=== PATIENT | male | born 1965 | race Caucasian/White ===

== ENCOUNTER 2024-09-23 15:35 | Emergency (ER) | payer BC, SELFPAY ==
[2024-09-23 15:45] VITALS: BP 136/83; PULSE 93; RESP 16; TEMP 36.7; O2SAT 95; BMI 26.3
--- NOTE | 2024-09-23 15:46 | ED_ITS ---
<Statement entered by Sherita Ochoa DO - 09/23/24 23:55> I was consulted by the BLAINE, and we discussed the complexity of the problems being addressed. I approved the treatment and management plan for this patient's care in the emergency department, thus performing a substantive portion of the medical decision making. Patient has range of motion of his elbow not concern for septic arthritis on my assessment. It looks like he has bursitis, but inflammatory markers and white count are not significant elevated. He is also afebrile, so I feel it is likely not septic bursitis. I feel he is appropriate for discharge with close follow-up with orthopedics Sherita Ochoa DO Discharge Plan Disposition Patient Disposition: Home, Self-Care Condition: Good Prescriptions Prescriptions: No Action No Known Home Medications Referrals Follow up/Referrals: Christiano Vargas DO [Staff Physician] - See instructions Jazmine Quintanilla DO [Primary Care Provider] - See instructions Activity Restrictions/Add. Instructions Additional Instructions/Restrictions: I have ordered you a sling for comfort. I recommend taking Tylenol alternating every 4 hours with Motrin while awake to help reduce pain and fever. I have referred you to orthopedics for ongoing evaluation and management. Please call on Thursday to make your appointment. If you have any continued new or worsening signs or symptoms including increasing pain redness inability to flex and extend your elbow return to the emergency department. Clinical Impressions Clinical Impression: Olecranon bursitis of right elbow Instructions Patient Instructions: DI for Skin Abscess Print Language Print Language: Croatian Discharge ED Provider: Sherita Ochoa General Adult HPI General Chief complaint: Skin/Abscess/Foreign Body Stated complaint: ? spider bite right elbow,sent from [facility] Time Seen by Provider: 09/23/24 15:46 History of Present Illness HPI narrative: Patient presents for evaluation of right elbow pain. Patient states he woke up with redness at his right olecranon this morning he denies any known trauma. He reports is gotten more painful and swollen throughout the day but denies fever chills hemoptysis hematochezia melena nausea vomiting diarrhea. He has tried Tylenol without relief. Related Data Home Medications ?Medication ?Instructions ?Recorded ?Confirmed No Known Home Medications 09/23/24 09/23/24 Allergies Allergy/AdvReac Type Severity Reaction Status Date / Time No Known Allergies Allergy Verified 09/23/24 14:43 PFSH PFSH Disclaimer: The information contained in this section may have been updated after the patient was seen, as this information can be updated by other users. Medical History (Updated 09/23/24 @ 16:56 by VINITA Cornelius) Swelling of elbow joint Social History (Updated 09/23/24 @ 18:02 by Lydia Olmstead APRN) Smoking Status: Never smoker alcohol intake: never current occupational status: employed Travel in the last 8 weeks: None Have you lived/traveled outside US in past 30 days?: No Contact w/someone who lives/traveled outside US past 30 days?: No Exposure to someone with infectious disease in past 14 days?: No Do you have a fever (greater than 100.4 F or 38 C)?: No Have you tested positive for COVID-19: No Exposed to someone with COVID-19 in past 14 days?: No Do you have a sore throat?: No Do you have a cough?: No Do you have any weakness?: No Do you have any diarrhea?: No Are you experiencing any unusual bleeding?: No Do you have any muscle aches/pain?: No Do you have any abdominal pain?: No Are you experiencing loss of taste or smell?: No ROS Obtained: Yes Systems reviewed as appropriate & no additional complaints except as documented Physical Exam General General appearance: alert and in no apparent distress Respiratory Respiratory exam: Present normal lung sounds bilaterally Cardiovascular Cardiovascular exam: Present regular rate Neurological Exam Neurological exam: Present alert and oriented X3 Medical Decision Making Medical Records Medical records reviewed: Yes I reviewed the patient's medical records. Screening: Per USPSTF and CDC recommendations, given the prevalence of disease in our region, it is our hospital?s policy to screen for HIV and viral Hepatitis for all patients aged 18 and over and those with ongoing risk factors. Oscar Inquiry Pt receiving controlled substance: No Vital Signs: 09/23/24 15:45 09/23/24 17:49 Temperature 98.0 F 98.0 F Temperature Source Oral Oral Pulse Rate 93 H Pulse Rate [Radial] 93 H Respiratory Rate 16 16 Blood Pressure 136/83 Blood Pressure [Right Arm] 136/83 Blood Pressure Mean [Right Arm] 100 Blood Pressure Source Automatic Cuff Blood Pressure Source [Right Arm] Automatic Cuff Blood Pressure Position Sitting Blood Pressure Position [Right Arm] Sitting 02 Sat by Pulse Oximetry 95 Oxygen Delivery Method Room Air Room Air Lab Data Lab results reviewed: Yes I reviewed the patient's lab results. Lab Results 09/23/24 16:25: WBC 9.3, RBC 5.77, Hgb 17.1, Hct 49.5, MCV 85.8, MCH 29.6, MCHC 34.5, RDW 13.3, Plt Count 208, MPV 9.8, Neut % (Auto) 81.7 H, Lymph % (Auto) 8.7 L, Bradford % (Auto) 6.8, Eos % (Auto) 2.2, Baso % (Auto) 0.4, Neut # (Auto) 7.6, Lymph # (Auto) 0.8, Bradford # (Auto) 0.6, Eos # (Auto) 0.2, Baso # (Auto) 0.0, ESR 1, Sodium 138, Potassium 4.3, Chloride 101, Carbon Dioxide 24, Anion Gap 17.3 H, BUN 17, Creatinine 0.90, Estimated Creat Clear 95, Estimated GFR 86, Est GFR ( Amer) 105, Glucose 161 H, Lactate 1.1, Calcium 9.8, Total Bilirubin 0.9, AST 32, ALT 37, Alkaline Phosphatase 82, C-Reactive Protein 4.7 H, Total Protein 8.4 H, Albumin 4.9, Globulin 3.5 H, Albumin/Globulin Ratio 1.4, Procalcitonin 0.043, HCV Ab LOBO w/Rflx PCR Qn Negative, HIV Ag/Ab Combo Qual Negative 09/23/24 16:25 09/23/24 16:25 Orders (Tests/Meds): ED MEDICATIONS Discontinued Medications Generic Name Dose Route Start Last Admin Trade Name Freq PRN Reason Stop Dose Admin Acetaminophen 1,000 mg 09/23/24 16:00 09/23/24 16:30 Acetaminophen 500mg Tab PO 09/23/24 16:01 1,000 mg ONCE ONE Administration Ketorolac Tromethamine 15 mg 09/23/24 16:00 09/23/24 16:30 Ketorolac 30mg/Ml Vial IV 09/23/24 16:01 15 mg ONCE ONE Administration Oxycodone HCl 5 mg 09/23/24 16:00 Oxycodone 5mg Immediate Release Tablet PO 09/23/24 16:01 ONCE ONE ORDERS Category Date Time Status Elbow XR right minimum 3 views [XR elbow RT min 3V] Exams 09/23/24 16:00 Completed Stat POCUS Point of Care (ER Only) Stat Exams 09/23/24 16:09 Taken CBC w/Auto Diff [Complete Blood Count Auto Diff] Stat Lab 09/23/24 16:25 Completed CMP [Comprehensive Metabolic Panel] Stat Lab 09/23/24 16:25 Completed CRP [C-Reactive Protein] Stat Lab 09/23/24 16:25 Completed ESR [Erythrocyte Sedimentation Rate] Stat Lab 09/23/24 16:25 Completed HIV Combo Stat Lab 09/23/24 16:25 Completed Hepatitis C Ab Qual. W/ RFX Stat Lab 09/23/24 16:25 Completed Lactic Acid Stat Lab 09/23/24 16:25 Completed Procalcitonin Stat Lab 09/23/24 16:25 Completed Medical Decision Narrative: In summary patient is a 59-year-old male who presents to the emergency department for evaluation of right elbow pain and swelling. Patient is hemodynamically stable upon arrival, afebrile. Physical exam is remarkable for olecranon bursa erythema but no induration no fluctuance patient has flexion extension at the elbow even though it is painful it is neurovascular intact distally.. Differential diagnosis includes osteophyte fracture versus olecranon bursitis versus cellulitis etc. Initial workup will be conducted with hematologic labs plain film x-ray of the elbow. Initial interventions include Toradol Tylenol and oxycodone. Initial workup reviewed by me shows his hematologic labs significant for normal white count normal H&H with no neutrophilic shift, his sed rate is 1. His procalcitonin is 0.043 C-reactive protein is 4.7 and my informal interpretation of his plain film x-ray shows no acute bony abnormality prior to radiology read.. Upon repeat evaluation had significant improvement after initial intervention. Given this we have essentially ruled out septic bursitis and will give the patient a sling for comfort referred to orthopedics and recommendation continue taking Tylenol alternating with Motrin for pain and symptomatic relief. Patient verbalized understanding and agreement. Critical Care Critical Care Time Critical Care Time: No
--- NOTE | 2024-09-23 16:00 | XR_ITS ---
FINAL REPORT CLINICAL HISTORY: Olecranon pain and swelling COMPARISON: None FINDINGS: RIGHT ELBOW 3 views of the right elbow were obtained. There is no acute fracture or dislocation. The joint spaces are well-preserved. There is no joint effusion. There is a 7 mm well-corticated ossific density posterior to the olecranon which may be related to some element of old trauma. There is overlying soft tissue edema. IMPRESSION: Soft tissue edema without acute abnormality. Reviewed, Interpreted and Dictated by Christos Fernandez MD Transcribed by Eufemia Valdez Authenticated and [facility]
[2024-09-23] MEDS: KETOROLAC 30MG/ML VIAL 15 MG IV (16:30)
[2024-09-23] MEDS: ACETAMINOPHEN 500MG TAB 1000 MG PO (16:30)
[2024-09-23 16:34] LABS: Hematocrit 49.5 % (42.0-52.0); Hemoglobin 17.1 g/dL (14.1-18.0); Lymphocytes % 8.7 % (10-50); Mean Corpuscular HGB Conc 34.5 g/dL (31.8-35.4); Mean Corpuscular Hemoglobin 29.6 pg (27.0-31.2); Mean Corpuscular Volume 85.8 fl (80-94); Mean Platelet Volume 9.8 fl (7.4-10.4); Neutrophils % 81.7 % (37.0-80.0); Platelet Count 208 K/mm3 (142-424); Red Blood Count 5.77 M/mm3 (4.60-6.20); Red Cell Distribution Width 13.3 % (11.5-17.5); Red Cell Distribution Width-SD 41.2 fL; White Blood Count 9.3 K/mm3 (4.8-10.8)
[2024-09-23 16:35] LABS: Basophils % 0.4 % (0.1-2.0); Eosinophils # 0.2 Kmm3 (0.0-0.4); Eosinophils % 2.2 % (0.1-12.0); Lymphocytes # 0.8 K/mm3 (0.7-4.5); Monocytes # 0.6 K/mm3 (0.1-1.0); Monocytes % 6.8 % (1.7-9.3); Neutrophils # 7.6 K/mm3 (1.8-7.8); Nucleated Red Blood Cells # 0 10^3/uL; Nucleated Red Blood Cells % 0 %
[2024-09-23 16:43] LABS: Alanine Aminotransferase 37 U/L (12-78); Albumin Level 4.9 g/dl (3.5-5.0); Albumin/Globulin Ratio 1.4 (1.1-1.8); Alkaline Phosphatase 82 U/L (38-126); Anion Gap 17.3 mEq/L (5-15); Aspartate Amino Transferase 32 U/L (17-59); Bilirubin,Total 0.9 mg/dl (0.2-1.3); Blood Urea Nitrogen 17 mg/dl (9-20); Calcium 9.8 mg/dl (8.4-10.2); Carbon Dioxide 24 mmol/L (22.0-30.0); Chloride 101 mmol/L (98-107); Creatinine Clearance Estimated 95 mL/min (50-200); Estimated Glomerular Filt Rate 86 ml/min (>60); GFR (African American) 105 ML/MIN (>60); Globulin 3.5 g/dL (1.3-3.2); Glucose 161 mg/dl (74-100); Potassium 4.3 mmoL/L (3.5-5.1); Sodium 138 mmol/L (136-145); Total Protein,Serum 8.4 g/dl (6.3-8.2)
[2024-09-23 16:44] LABS: Lactic Acid 1.1 mmol/L (0.7-2.1)
[2024-09-23 16:48] LABS: C-Reactive Protein 4.7 mg/L (0-4)
[2024-09-23 17:02] LABS: Procalcitonin 0.043 ng/mL (0.0-2.0)
[2024-09-23 17:06] LABS: Erythrocyte Sedimentation Rate 1 mm/hr (0-20)
[2024-09-23 17:49] VITALS: BP 136/83; PULSE 93; RESP 16; TEMP 36.7; O2SAT 95
[2024-09-23 18:03] LABS: HIV Combo NEGATIVE (Negative)
[2024-09-23 18:10] LABS: Hepatitis C Ab Qual. W/ RFX NEGATIVE (Negative)
== END 2024-09-23 17:51 | disposition home or self-care (01) ==
PROVIDERS: Physician Assistant; Emergency Provider Emergency Medicine; PCP Family Medicine
DX: M70.21 Olecranon bursitis, right elbow (principal); M25.521 Pain in right elbow; Z11.59 Encounter for screening for other viral diseases; Z11.4 Encounter for screening for human immunodeficiency virus [HIV]
CPT/HCPCS: 73080; 80053; 83605; 84145; 85025; 85651; 86140; 86803; 87389; 96374; 99284; J1885

== ENCOUNTER 2025-03-02 10:25 | Emergency (ER) | payer BC, SELFPAY ==
--- OUTSIDE RECORDS SUMMARY | 2025-02-28 23:00 | XMS_ITS | Encounter Summary ---
Author Organization [facility] Address [address] [place], [place] [phone] Phone [email or web address] Care Team Providers Care Marine Biologist Name Role Phone Jazmine Quintanilla Primary Care Provider [phone] Reason for Visit * Reason Comments Care Coordination Encounter Details Date Type Department Care Team (Latest Contact Info) Description 02/28/2025 11:00 PM EDT Clinical Support [facility] [place] [address] [facility] [address] [place] [address] Tete Mooney PA [address] [place] [address] Lightheaded (Primary Dx) Social History [...] on file 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 Oral hydration at [facility]. EDWIGE declined ALS. Stable at discharge and transported to the ER by his . RTC with release to RTW note. documented in this encounter Progress Notes * VINITA Valrea - 02/28/2025 11:00 PM EDT Subjective Ana Liu Jr. is a 59 y.o. male. 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 Onset: ~10 minutes prior to arrival Symptoms: lh/d, fuzzy headed , syncopal episode Transported TM back to [facility] 1999 via Med 1 without stretcher. [...] , but agreed to further eval at [facility]. GL gave TM water. TM feels [...] cranial nerve deficit. Gait: Gait normal. Comments: Screening Specialist is good/= Psychiatric: Mood and Affect: [...] documented in this encounter Plan of Treatment Upcoming Encounters Date Type Department Care Team (Late st Contact Info) Description 03/20/2025 8:30 PM EDT Occ Office Visit [facility] [place] [address] [facility] [address] [place] [address] Tete Mooney PA [address] [place] [address] Scheduled Orders Name Type Priority Associated Diagnoses Orde r Schedule ECG 12 lead ECG Routine Lightheaded Ordered: 02/28/2025 documented as of this encounter Procedures Procedure Name Priority Date/Time Associated Diagnosis Comments POCT GLUCOSE Routine 02/28/2025 11:22 PM EDT Lightheaded documented in this encounter Results * (ABNORMAL) POCT glucose (02/28/2025 11:22 PM EDT) [facility] Signature Glucose, POC 325(A) 65 - 99 mg/dL Glucose (Glucometer), POC IQC Yes, verified internal control performed correctly. Lot Number ER bed 1 Expiration Date ER bed 1 Blood (Blood, Capillary) 02/28/2025 11:22 PM EDT Tete TALAMANTES POINT OF CARE TEST ORDERABLE S Final Result documented in this encounter Visit Diagnoses Diagnosis Lightheaded- Primary Dizziness and giddiness documented in this encounter Care Teams Marine Biologist Relationship Specialty Start Date End Date Jazmine Quintanilla [address] [place] [phone] PCP - General 10/24/24 documented as of this encounter
[2025-03-02] VITALS (15 sets, daily range): BP systolic 126–157; BP diastolic 81–106; PULSE 69–99; RESP 14–18; TEMP 36.6–36.7; O2SAT 95–99; BMI 27.3
--- NOTE | 2025-03-02 10:34 | ECG_ITS ---
APPROVED REPORT Exam: Resting ECG HR:91 bpm ECG Measurements Heart Rate 91 AXES ND 109 P 61 QRSd 85 QRS 65 QT 331 T 22 QTc 379 Conclusion SINUS RHYTHM WITH SHORT ND INTERVAL NONSPECIFIC T-WAVE ABNORMALITY BORDERLINE ECG UNCONFIRMED REPORT Electronically signed by : GERMAN SHULTZ, 03/03/2025 03:58:56
--- NOTE | 2025-03-02 10:34 | PC.NURSE ---
FSBS 171
--- OUTSIDE RECORDS SUMMARY | 2025-03-02 10:34 | XMS_ITS | Encounter Summary ---
Author Organization [facility] Address [address] [place], [place] [phone] Phone [email or web address] Care Team Providers Care Copy Machine Operator Name Role Phone Jazmine Quintanilla Primary Care Provider [phone] Encounter Details Date Type Department Care Team (Late Contact Info) Description 03/01/[address] [place] [address] Vita Lopez RN [address] [place] [address] Social History Tobacco Use Types Packs/Day Years Used Date Smoking Tobacco: Never Smokeless Tobacco: Never Depression Answer Date Recorded PHQ Total Score 0 01/16/2025 Stress Answer Date Recorded Stress in your Life Not on file 04/13/2024 Dealing with Stress 3 04/13/2024 Sex and Gender Information Value Date Recorded Sex Assigned at Not on file 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 No answer. Left VM. documented in this encounter Plan of Treatment Upcoming Encounters Date Type Department Care Team (Late Contact Info) Description 03/20/2025 8:30 PM EDT Occ Office Visit [facility] [address] [facility] [address] [place] [address] Tete Mooney PA [address] [place] [address] documented as of this encounter Visit Diagnoses Not on filedocumented in this encounter Care Teams Copy Machine Operator Relationship Specialty Start Date End Date Jazmine Quintanilla [address] [place] [id number] PCP - General 10/24/24 documented as of this encounter
--- OUTSIDE RECORDS SUMMARY | 2025-03-02 10:34 | XMS_ITS | Clinical Summary ---
Author Organization [facility] Address [address] [place] [address] Phone [email or web address] Care Team Providers Care Azure Principal Solution Specialist Name Role Phone Jazmine Quintanilla Primary Care Provider [phone] Allergies No known active allergies Medications lisinopril (ZESTRIL) 10 MG tabletIndications :Primary hypertension Take 1 tablet (10 mg total) by mouth 1 (one) time each day. 30 tablet 02/04/2023 Active Jardiance 25 MG tablet Take 1 tablet every day by oral route for 90 days. 09/21/2024 Active ibuprofen (MOTRIN) 200 MG tablet Take 200 mg by mouth every 6 (six) hours if needed for mild pain. Active meloxicam (MOBIC) 15 MG tablet TAKE 1 TABLET BY MOUTH ONCE DAILY FOR 10 DAYS 09/26/2024 Active Jardiance 10 MG tablet Take 1 tablet by mouth 1 (one) time each day. 09/19/2024 Active Hospital, Clinic, or Other Facility Administered Medication Ordered Dose Route Frequency Start Date End Date Status sulfamethoxazole-trimethoprim (BACTRIM DS) 800-160 MG per tablet 1 tabletIndications:Cellulitis of right elbow 1 tablet PO Once 01/17/2025 Active Active Problems Problem Noted Date Diagnosed Date Essential hypertension 12/11/2019 Type 2 diabetes mellitus 12/11/2019 Encounters Date Type Department Care Team Description 03/01/2025 Telephone [facility] [address] [place] [address] Vita Lopez RN 02/28/2025 11:00 PM EDT Clinical Support [facility] [address] [facility] [address] [place] [address] Tete Mooney PA Lightheaded (Primary Dx) 02/15/2025 Telephone [facility] [address] [place] [address] Mariana Hawthorne RN 12/05/[address] [place] [address] Bridget Valenzuela MA from Last 3 Months Social History Tobacco Use Types Packs/Day Years [...] on file 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 Gender Identity Not on file Sexual Orientation Not on file Last Filed Vital Signs Vital Sign Reading Time Taken Comments Blood Pressure 155/88 02/28/2025 10:53 PM EDT Pulse 89 02/28/2025 10:53 PM EDT Temperature 36.8 C (98.3 F) 02/15/2025 4:05 PM EDT Respiratory Rate 16 02/28/2025 11:15 PM EDT Oxygen Saturation 96% 02/28/2025 11:15 PM EDT Inhaled Oxygen Concentration - - Weight 76.9 kg (169 lb 9.6 oz) 09/26/2024 11:30 AM EDT Height 170.2 cm (5' 7 ) 09/26/2024 11:30 AM EDT Body Mass Index 26.56 09/26/2024 11:30 AM EDT Plan of Treatment Upcoming Encounters Date Type Department Care Team (Late st Contact Info) Description 03/20/2025 8:30 PM EDT Occ Office Visit [facility] [address] [facility] [address] [place] [address] Tete Mooney PA [address] [place] [address] Health Maintenance Due Date Last Done Comments CT Colonography 1965 Colonoscopy 1965 Colorectal Cancer Screening Combo 1965 DNA Cologuard 1965 Dental Cleaning/Exam 1965 FIT or FOBT Test 1965 HIV Screening 1965 Hepatitis C Screening 1965 Sigmoidoscopy 1965 Diabetic Comprehensive Foot Exam 08/24/1975 Diabetic Kidney Health Eval (eGFR & Alb/CR ratio urine) 08/24/1975 Hemoglobin A1C Testing 08/24/1975 Hep B Infection Screening - Triple Screen 08/24/1983 Hepatitis B Immunization (1 of 3 - 19+ 3-dose series) 1984 Pneumococcal Immunization (1 of 2 - PCV) 1984 Tetanus Diphtheria and Pertu ssis Immunization (1 - Tdap) 1984 Zoster Immunization (1 of 2) 08/24/2015 Annual Preventive Exam 05/16/2023 05/16/2022 Diabetic Retinal Eye Exam 09/30/2024 09/30/2022 Covid-19 Immunization (1 - 2 season) 2025 Influenza Immunization (#1) 2025 HIB Immunization Aged Out No longer e ligible based on patient's age to complete this topic HPV Immunization Aged Out No longer e ligible based on patient's age to complete this topic Hepatitis A Immunization Aged Out No longer eligible based on patient's age to complete this topic Polio Immunization Aged Out No longer eligible based on patient's age to complete this topic Procedures Procedure Name Priority Date/Time Associated Diagnosis Comments POCT GLUCOSE Routine 02/28/2025 11:22 PM EDT Lightheaded from Last 3 Months Results * (ABNORMAL) POCT glucose (02/28/2025 11:22 PM EDT) Glucose, POC 325(A) 65 - 99 mg/dL Glucose (Glucometer), POC IQC Yes, verified internal control performed correctly. Lot Number ER bed 1 Expiration Date ER bed 1 Blood (Blood, Capillary) 02/28/2025 11:22 PM EDT Tete TALAMANTES POINT OF CARE TEST ORDERABLE S Final Result from Last 3 Months Insurance [place] [address] [facility] [id number] [place] [address] Care Teams Azure Principal Solution Specialist Relationship Specialty Start Date End Date aJzmine Quintanilla [address] [place] [id number] PCP - General 10/24/24
--- OUTSIDE RECORDS SUMMARY | 2025-03-02 10:34 | XMS_ITS | Encounter Summary ---
Author Organization [facility] Address [address] [place] [address] Phone [email or web address] [email or web address] Care Team Providers Care Toll Line Repairer Name Role Phone Jazmine Quintanilla Primary Care Provider Encounter Details Date Type Department Care Team (Late st Contact Info) Description 02/15/2025 Telephone [facility] [address] [place] [address] Mariana Hawthorne, RN [address] [place] [address] Social History Tobacco Use Types Packs/Day Years Used Date Smoking Tobacco: Never Smokeless Tobacco: Never Depression Answer Date Recorded PHQ Total Score 0 01/16/2025 Stress Answer Date Recorded Stress in your Life Not on file 04/13/2024 Dealing with Stress 3 04/13/2024 Sex and Gender Information Value Date Recorded Sex Assigned at Not on file 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 He is using ibuprofen but no antibiotics for a few weeks. He has been seen by S provider and on 1:1 restricted duty. He has a follow up with Specialist office at [facility] on 02/27/25. He has called the office of [facility] and asked for earlier appt but the Specialist and kathy TALAMANTES are on vacation for a few weeks. I placed him on the scheduled this afternoon at 1:30, then r/s to 5 pm once clarified he is 2nd shift. TM is aware of [facility] appt at 5pm with Dr. Huber. Mariana Hawthorne RN documented in this encounter Plan of Treatment Upcoming Encounters Date Type Department Care Team (Late st Contact Info) Description 03/20/2025 8:30 PM EDT Occ Office Visit [facility] [address] [place] [address] Tete Mooney PA [address] [place] [address] documented as of this encounter Visit Diagnoses Not on filedocumented in this encounter Care Teams Toll Line Repairer Relationship Specialty Start Date End Date Jazmine Quintanilla [address] [place] [id number] PCP - General 10/24/24 documented as of this encounter
--- OUTSIDE RECORDS SUMMARY | 2025-03-02 10:34 | XMS_ITS | Patient Health Record ---
Author Organization [facility] Physician Jet young Billing Info Address [address] [place] [address] [place] [address] Support Name Relationship Address Phone NoeKatherine Emergency Contact [address] [place] [address] Ana Liu Guarantor Unknown Reason For Referral No Information Immunizations Vaccine Route Administration Date Status Comme nts zFLU 4V (AFLURIA QUAD), 3+yr s, NO PRES - ALL PAYORS Unknown 12/05/2019 Refused Social History Tobacco Status: Question Answer Notes Patient is a non tobacco user Plan Of Treatment Pending Test Test Name Order Date GLUCOSE FINGERSTICK, BLOOD, GLUCOSE SHUBHAM TORING (12698) 12/05/2019 URINALYSIS, DIP STICK/TABLET REAGENT; AU TOMATED, W/O MICROSCOPY ([id number]) 12/05/2019 Comprehensive Metabolic Panel (71299) 12/05/2019 BLOOD COUNT; COMPLETE CBC, A UTOMATED (HGB, HCT, RBC, WBC, & PLATELET) & AUTOMATED DIFFERENTIAL WBC (79109) CBC 12/05/2019 Insurance Providers Payer Name Payer Address Payer Phone Subscriber Number Group Number Insured Name Patient Relationship to Insured Coverage Start Date Coverage End Date [facility] CHOICE PLUS [address] [facility] [place] [place] [id number] Ana Liu Self - patient is the insured 0 0 Medical (General) History Medical History History ICD Code Borderline Diabetes Surgical History Surgery Date(Month/Year) deviated septum repair 11/24/2019
--- NOTE | 2025-03-02 11:11 | ED_ITS ---
Discharge Plan Disposition Patient Disposition: Home, Self-Care Prescriptions Prescriptions: No Action No Known Home Medications Referrals Follow up/Referrals: Jazmine Quintanilla DO [Primary Care Provider, Medical] - See instructions Queta Hernández MD [Physician, Pulmonology] - See instructions Activity Restrictions/Add. Instructions Additional Instructions/Restrictions: At this time it was felt you are safe to be discharged home. If new or worsening symptoms please do not hesitate to return the emergency department. As discussed please follow-up with cardiology tomorrow morning at 9 AM. You were also found to have a pulmonary nodule in your right upper lung. This will need follow-up and I am referring you to our market research coordinator, Dr. Hernández. I encourage you to call their office to schedule a follow-up appointment. Clinical Impressions Clinical Impression: Syncope, Incidental pulmonary nodule Instructions Patient Instructions: DI for Syncope in Adults (Fainting) Print Language Print Language: Guatemalan Discharge ED Provider: Arnulfo Bertrand General Adult HPI <Arnulfo Bertrand MD - Last Filed: 03/02/25 15:12> General Chief complaint: Syncope Stated complaint: Wants EKG & Finger Stick Time Seen by Provider: 03/02/25 10:30 Mode of Arrival: Ambulatory Source of Information: Patient Description of Symptoms (Recalled from ER Triage Doc. by RN): Patient states that he had a syncopal episode at work on 02/28/25 and was told that night when it happened he needed to go to the ER and get checked out. Patient states that he did not want to go to the ER then because it was too late and instead states he decided to come to the ER today to get his blood sugar checked and a repeat EKG. Patient denies any further syncopal episodes. History of Present Illness HPI narrative: Patient is a 59-year-old male with iqa-ryyswuq-ozaqviwyj diabetes, hypertension who presents emergency department for evaluation of syncope. 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 No significant trauma. He was instructed to go to the ER to be cleared. His sugars have been running 300-400 on his Jardiance lately. No other acute complaints at this time. Please note that above description of symptoms, in this electronic medical record under categorization of recalled from ER triage doctor by RN are reflective of an initial nursing assessment, however, is not reflective of my full history and physical exam that was personally taken and clarified. Consequentially, this preceding description of symptoms, which may include the patient's categorized chief complaint in the EMR, do not reflect my personal clinical impression, and the ultimate description of history of present illness and patient stated complaints should be deferred to this section of the note. Unless stated otherwise or congruent with this section of the note, additional signs, symptoms, or incongruence should be interpreted as inaccurate with my clinical impression. Related Data Home Medications ?Medication ?Instructions ?Recorded ?Confirmed No Known Home Medications 09/23/2409/06 Allergies Allergy/AdvReac Type Severity Reaction Status Date / Time No Known Allergies Allergy Verified 03/02/25 10:39 PFSH <Arnulfo Bertrand MD - Last Filed: 03/02/25 15:12> PFS Disclaimer: The information contained in this section may have been updated after the patient was seen, as this information can be updated by other users. Medical History (Updated 03/02/25 @ 16:14 by Juan Atkinson MD) Swelling of elbow joint Social History (Updated 09/23/24 @ 18:02 by Lydia Olmstead APRN) Smoking Status: Never smoker alcohol intake: never current occupational status: employed Travel in the last 8 weeks?: None <Arnulfo Bertrand MD - Last Filed: 03/02/25 15:12> ROS Obtained: Yes Systems reviewed as appropriate & no additional complaints except as documented Physical Exam <Arnulfo Bertrand MD - Last Filed: 03/02/25 15:12> General General appearance: alert and in no apparent distress Head Head exam: atraumatic and normocephalic Eye Eye exam: Present PERRL and EOMI ENT ENT exam: Present mucous membranes moist Neck Neck exam: Present normal inspection Chest Chest inspection: Present normal inspection and symmetric chest wall rise Respiratory Respiratory exam: Present normal lung sounds bilaterally; Absent respiratory distress Cardiovascular Cardiovascular exam: Present regular rate and normal rhythm Abdominal Exam Abdominal exam: Present soft; Absent tenderness Extremities Exam Extremities exam: Present normal inspection Neurological Exam Neurological exam: Present alert and CN II-XII intact; Absent motor sensory deficit Psychiatric Psychiatric exam: Present normal affect Skin Skin exam: Present warm and dry Medical Decision Making <Arnulfo Bertrand MD - Last Filed: 03/02/25 15:12> Medical Records Screening: Per USPSTF and CDC recommendations, given the prevalence of disease in our region, it is our hospital?s policy to screen for HIV and viral Hepatitis for all patients aged 18 and over and those with ongoing risk factors. Oscar Inquiry Pt receiving controlled substance: No Vital Signs: 03/02/25 10:34 03/02/25 11:11 03/02/25 11:30 Temperature 98 F Temperature Source Oral Pulse Rate 78 81 Pulse Rate [Left Brachial] 99 H Respiratory Rate 16 16 16 Blood Pressure 128/81 126/90 Blood Pressure [Left Arm] 139/106 H Blood Pressure Mean 84 100 Blood Pressure Mean [Left Arm] 117 Blood Pressure Source [Left Arm] Automatic Cuff Blood Pressure Position [Left Arm] Sitting 02 Sat by Pulse Oximetry 97 97 95 Oxygen Delivery Method Room Air Room Air 03/02/25 12:00 03/02/25 12:30 03/02/25 12:53 Temperature Temperature Source Pulse Rate 85 70 77 Pulse Rate [Left Brachial] Respiratory Rate 18 14 18 Blood Pressure 141/97 H 157/106 H 155/90 H Blood Pressure [Left Arm] Blood Pressure Mean 109 117 111 Blood Pressure Mean [Left Arm] Blood Pressure Source [Left Arm] Blood Pressure Position [Left Arm] 02 Sat by Pulse Oximetry 97 98 99 Oxygen Delivery Method 03/02/25 13:00 03/02/25 13:30 03/02/25 14:00 Temperature Temperature Source Pulse Rate 73 71 77 Pulse Rate [Left Brachial] Respiratory Rate 16 16 18 Blood Pressure 154/98 H 141/97 H 148/102 H Blood Pressure [Left Arm] Blood Pressure Mean 113 108 117 Blood Pressure Mean [Left Arm] Blood Pressure Source [Left Arm] Blood Pressure Position [Left Arm] 02 Sat by Pulse Oximetry 98 96 97 Oxygen Delivery Method 03/02/25 14:30 Temperature Temperature Source Pulse Rate 72 Pulse Rate [Left Brachial] Respiratory Rate 15 Blood Pressure 150/95 H Blood Pressure [Left Arm] Blood Pressure Mean Blood Pressure Mean [Left Arm] Blood Pressure Source [Left Arm] Blood Pressure Position [Left Arm] 02 Sat by Pulse Oximetry 97 Oxygen Delivery Method Lab Data Lab Results 03/02/25 11:20: WBC 6.3, RBC 5.93, Hgb 17.6, Hct 50.9, MCV 85.8, MCH 29.7, MCHC 34.6, RDW 13.2, Plt Count 219, MPV 9.6, Neut % (Auto) 71.2, Lymph % (Auto) 14.9, [place] % (Auto) 7.3, Eos % (Auto) 5.2, Baso % (Auto) 0.9, Neut # (Auto) 4.5, Lymph # (Auto) 0.9, [place] # (Auto) 0.5, Eos # (Auto) 0.3, Baso # (Auto) 0.1, D-Dimer 0.66 H, VBG pH 7.36, VBG pCO2 34.8 L, VBG pO2 56.2 H, VBG HCO3 19.2 L, VBG Total CO2 20.3 L, VBG O2 Saturation 88.6 H, VBG Base Excess -6.2 L, VBG Lactic Acid 1.9, Sodium 133 L, Potassium 4.8, Chloride 98, Carbon Dioxide 21 L, Anion Gap 18.8 H, BUN 19, Creatinine 0.90, Estimated Creat Clear 99, Estimated GFR 86, Est GFR ( Amer) 105, Glucose 159 H, Calcium 9.8, Magnesium 2.1, Total Bilirubin 1.0, AST 42, ALT 37, Alkaline Phosphatase 72, Total Protein 8.3 H, Albumin 4.6, Globulin 3.7 H, Albumin/Globulin Ratio 1.2, TSH 1.56, Free T4 1.06, Acetone Level None detected 03/02/25 12:53: Urine Color Yellow, Urine Appearance Clear, Urine pH 5.5, Ur Specific [place] 1.020, Urine Protein Negative, Urine Glucose (UA) 3+, Urine Ketones 3+, Urine Blood Negative, Urine Nitrate Negative, Urine Bilirubin Negative, Urine Urobilinogen 0.2, Ur Leukocyte Esterase Negative, Urine RBC None, Urine WBC None, Ur Squamous Epith Cells None, Urine Bacteria None 03/02/25 11:20 03/02/25 11:20 Orders (Tests/Meds): ED MEDICATIONS Discontinued Medications Generic Name Dose Route Start Last Admin Trade Name Freq PRN Reason Stop Dose Admin Lactated Ringer's 1,000 mls @ 999 mls/hr 03/02/25 11:11 03/02/25 12:32 Lactated Ringer's 1000 Ml Bag IV 03/02/25 12:11 Infused .Q1H1M ONE Infusion Iopamidol 70 ml 03/02/25 15:34 03/02/25 15:35 Iopamidol-370 (76%);100ml Bottle IV 03/02/25 15:35 70 ml ONCE ONE Administration Sodium Chloride 50 ml 03/02/25 15:34 03/02/25 15:35 0.9 % Sodium Chloride 50 Ml Vial IV 03/02/25 15:35 50 ml ONCE ONE Administration Sodium Chloride 10 ml 03/02/25 15:34 03/02/25 15:35 Sodium Chloride 0.9% 10ml Syr (Rad Only) IV 03/02/25 15:35 10 ml ONCE ONE Administration ORDERS Category Date Time Status CT angio chest PE protocol Stat Cat Scan 03/02/25 15:17 Completed CXR --portable [XR chest portable] Stat Exams 03/02/25 13:47 Completed Acetone, Serum (Rapid) Stat Lab 03/02/25 11:20 Completed CBC w/Auto Diff [Complete Blood Count Auto Diff] Stat Lab 03/02/25 11:20 Completed CMP [Comprehensive Metabolic Panel] Stat Lab 03/02/25 11:20 Completed D-Dimer Stat Lab 03/02/25 11:20 Completed Free T4 (Free Thyroxine) Stat Lab 03/02/25 11:20 Completed MG [Magnesium] Stat Lab 03/02/25 11:20 Completed TSH [Thyroid Stimulating Hormone] Stat Lab 03/02/25 11:20 Completed UA [Urinalysis and Microscopic] Stat Lab 03/02/25 12:53 Completed VBG [Venous Blood Gas] Stat RT 03/02/25 11:20 Completed ECG holter initial pfn Stat Y 03/02/25 15:11 Completed ECG Data Tracing #1: Independently interpreted by me rate is 91, rhythm is regular, axis is normal, no ST elevation in anatomical contiguous leads, QTc 379, no high degree AV block, no delta wave, no dagger Q waves in the lateral leads, no evidence of type II Brugada. Medical Decision Narrative: In summary patient is a 59-year-old male with past medical history of scrota above who presents emergency department for evaluation of syncope. Patient is hemodynamically stable nontoxic-appearing arrival, afebrile with nonfocal neurologic exam. Fingerstick upon arrival 171. Patient has taken Jardiance. Differential includes euglycemic DKA, metabolic derangement, electrolyte abnormality, cardiogenic arrhythmic syncope, among others. Initial workup will be conducted with hematologic labs. Patient has no chest pain to warrant investigation for ACS or pulmonary embolism at this time. Initial inventions include crystalloid bolus. Initial hematologic labs reviewed by me no significant leukocytosis, compensated acid-base status no transfusable anemia, no BRADLEY or critical electrolyte abnormality sugar is 159. Acetone negative. Urinalysis interpreted by me and not consistent with infection. I consulted cardiology Yovany Wyatt who evaluated the patient, we will get a D-dimer to rule stratify pulmonary embolism and will put him on a Holter monitor and if D-dimer excludes pulmonary embolism will follow-up tomorrow morning at 9 AM in clinic. <Juan Atkinson MD - Last Filed: 03/02/25 16:15> Vital Signs: 03/02/25 10:34 03/02/25 11:11 03/02/25 11:30 Temperature 98 F Temperature Source Oral Pulse Rate 78 81 Pulse Rate [Left Brachial] 99 H Respiratory Rate 16 16 16 Blood Pressure 128/81 126/90 Blood Pressure [Left Arm] 139/106 H Blood Pressure Mean 84 100 Blood Pressure Mean [Left Arm] 117 Blood Pressure Source [Left Arm] Automatic Cuff Blood Pressure Position [Left Arm] Sitting 02 Sat by Pulse Oximetry 97 97 95 Oxygen Delivery Method Room Air Room Air 03/02/25 12:00 03/02/25 12:30 03/02/25 12:53 Temperature Temperature Source Pulse Rate 85 70 77 Pulse Rate [Left Brachial] Respiratory Rate 18 14 18 Blood Pressure 141/97 H 157/106 H 155/90 H Blood Pressure [Left Arm] Blood Pressure Mean 109 117 111 Blood Pressure Mean [Left Arm] Blood Pressure Source [Left Arm] Blood Pressure Position [Left Arm] 02 Sat by Pulse Oximetry 97 98 99 Oxygen Delivery Method 03/02/25 13:00 03/02/25 13:30 03/02/25 14:00 Temperature Temperature Source Pulse Rate 73 71 77 Pulse Rate [Left Brachial] Respiratory Rate 16 16 18 Blood Pressure 154/98 H 141/97 H 148/102 H Blood Pressure [Left Arm] Blood Pressure Mean 113 108 117 Blood Pressure Mean [Left Arm] Blood Pressure Source [Left Arm] Blood Pressure Position [Left Arm] 02 Sat by Pulse Oximetry 98 96 97 Oxygen Delivery Method 03/02/25 14:30 Temperature Temperature Source Pulse Rate 72 Pulse Rate [Left Brachial] Respiratory Rate 15 Blood Pressure 150/95 H Blood Pressure [Left Arm] Blood Pressure Mean Blood Pressure Mean [Left Arm] Blood Pressure Source [Left Arm] Blood Pressure Position [Left Arm] 02 Sat by Pulse Oximetry 97 Oxygen Delivery Method Lab Data Lab Results 03/02/25 11:20: WBC 6.3, RBC 5.93, Hgb 17.6, Hct 50.9, MCV 85.8, MCH 29.7, MCHC 34.6, RDW 13.2, Plt Count 219, MPV 9.6, Neut % (Auto) 71.2, Lymph % (Auto) 14.9, [place] % (Auto) 7.3, Eos % (Auto) 5.2, Baso % (Auto) 0.9, Neut # (Auto) 4.5, Lymph # (Auto) 0.9, [place] # (Auto) 0.5, Eos # (Auto) 0.3, Baso # (Auto) 0.1, D-Dimer 0.66 H, VBG pH 7.36, VBG pCO2 34.8 L, VBG pO2 56.2 H, VBG HCO3 19.2 L, VBG Total CO2 20.3 L, VBG O2 Saturation 88.6 H, VBG Base Excess -6.2 L, VBG Lactic Acid 1.9, Sodium 133 L, Potassium 4.8, Chloride 98, Carbon Dioxide 21 L, Anion Gap 18.8 H, BUN 19, Creatinine 0.90, Estimated Creat Clear 99, Estimated GFR 86, Est GFR ( Amer) 105, Glucose 159 H, Calcium 9.8, Magnesium 2.1, Total Bilirubin 1.0, AST 42, ALT 37, Alkaline Phosphatase 72, Total Protein 8.3 H, Albumin 4.6, Globulin 3.7 H, Albumin/Globulin Ratio 1.2, TSH 1.56, Free T4 1.06, Acetone Level None detected 03/02/25 12:53: Urine Color Yellow, Urine Appearance Clear, Urine pH 5.5, Ur Specific [place] 1.020, Urine Protein Negative, Urine Glucose (UA) 3+, Urine Ketones 3+, Urine Blood Negative, Urine Nitrate Negative, Urine Bilirubin Negative, Urine Urobilinogen 0.2, Ur Leukocyte Esterase Negative, Urine RBC None, Urine WBC None, Ur Squamous Epith Cells None, Urine Bacteria None Orders (Tests/Meds): ED MEDICATIONS Discontinued Medications Generic Name Dose Route Start Last Admin Trade Name [place] PRN Reason Stop Dose Admin Lactated Ringer's 1,000 mls @ 999 mls/hr 03/02/25 11:11 03/02/25 12:32 Lactated Ringer's 1000 Ml Bag IV 03/02/25 12:11 Infused .Q1H1M ONE Infusion Iopamidol 70 ml 03/02/25 15:34 03/02/25 15:35 Iopamidol-370 (76%);100ml Bottle IV 03/02/25 15:35 70 ml ONCE ONE Administration Sodium Chloride 50 ml 03/02/25 15:34 03/02/25 15:35 0.9 % Sodium Chloride 50 Ml Vial IV 03/02/25 15:35 50 ml ONCE ONE Administration Sodium Chloride 10 ml 03/02/25 15:34 03/02/25 15:35 Sodium Chloride 0.9% 10ml Syr (Rad Only) IV 03/02/25 15:35 10 ml ONCE ONE Administration ORDERS Category Date Time Status CT angio chest PE protocol Stat Cat Scan 03/02/25 15:17 Completed CXR --portable [XR chest portable] Stat Exams 03/02/25 13:47 Completed Acetone, Serum (Rapid) Stat Lab 03/02/25 11:20 Completed CBC w/Auto Diff [Complete Blood Count Auto Diff] Stat Lab 03/02/25 11:20 Completed CMP [Comprehensive Metabolic Panel] Stat Lab 03/02/25 11:20 Completed D-Dimer Stat Lab 03/02/25 11:20 Completed Free T4 (Free Thyroxine) Stat Lab 03/02/25 11:20 Completed MG [Magnesium] Stat Lab 03/02/25 11:20 Completed TSH [Thyroid Stimulating Hormone] Stat Lab 03/02/25 11:20 Completed UA [Urinalysis and Microscopic] Stat Lab 03/02/25 12:53 Completed VBG [Venous Blood Gas] Stat RT 03/02/25 11:20 Completed ECG holter initial pfn Stat Y 03/02/25 15:11 Completed Medical Decision Narrative: In summary patient is a 59-year-old male with past medical history of scrota above who presents emergency department for evaluation of syncope. Patient is hemodynamically stable nontoxic-appearing arrival, afebrile with nonfocal neurologic exam. Fingerstick upon arrival 171. Patient has taken Jardiance. Differential includes euglycemic DKA, metabolic derangement, electrolyte abnormality, cardiogenic arrhythmic syncope, among others. Initial workup will be conducted with hematologic labs. Patient has no chest pain to warrant investigation for ACS or pulmonary embolism at this time. Initial inventions include crystalloid bolus. Initial hematologic labs reviewed by me no significant leukocytosis, compensated acid-base status no transfusable anemia, no BRADLEY or critical electrolyte abnormality sugar is 159. Acetone negative. Urinalysis interpreted by me and not consistent with infection. I consulted cardiology Yovany Wyatt who evaluated the patient, we will get a D-dimer to rule stratify pulmonary embolism and will put him on a Holter monitor and if D-dimer excludes pulmonary embolism will follow-up tomorrow morning at 9 AM in clinic. Juan Atkinson MD At the time my assumption of care, plan was to follow-up patient's D-dimer and obtain CT PE if elevated. Otherwise, if negative, discharged with Holter monitor and cardiology follow-up tomorrow. Ultimately, patient's workup showed mildly elevated D-dimer of 0.66. Given this, to rule out pulmonary embolism as the cause for his syncopal episode, will obtain CT pulmonary embolism. CT PE interpreted by me personally. No evidence of pulmonary embolism. He does have a right upper lobe pulmonary nodule but no other acute findings. See radiology report for details. Will give patient referral to Dr. Hernández for follow-up of patient's pulmonary nodule. Patient has an appointment with cardiology at 9 AM in the morning. Holter monitor has been placed. Return precautions were given. All questions were answered. He is being discharged at this time with plan to follow with cardiology in the morning as discussed and he is in agreement with this plan. Critical Care <Arnulfo Bertrand MD - Last Filed: 03/02/25 15:12> Critical Care Time Critical Care Time: No
--- NOTE | 2025-03-02 11:23 | PC.NURSE ---
RT AWARE OF VBG
[2025-03-02 11:29] LABS: Hematocrit 50.9 % (42.0-52.0); Hemoglobin 17.6 g/dL (14.1-18.0); Immature Granulocytes % 0.5 %; Mean Corpuscular HGB Conc 34.6 g/dL (31.8-35.4); Mean Corpuscular Hemoglobin 29.7 pg (27.0-31.2); Mean Corpuscular Volume 85.8 fl (80-94); Nucleated Red Blood Cells % 0 %; Platelet Count 219 K/mm3 (142-424); Red Blood Count 5.93 M/mm3 (4.60-6.20); Red Cell Distribution Width-SD 41.0 fL; White Blood Count 6.3 K/mm3 (4.8-10.8)
[2025-03-02] MEDS: LACTATED RINGERS 1000ML 1,000 ML 999 ML IV (11:31)
[2025-03-02 11:32] LABS: Lactate Venous 1.9 mmol/L (0.4-2.0); VBG HCO3 19.2 mmol/L (23-30); VBG PCO2 34.8 mmol/L (35-51); VBG PH 7.36 mmol/L (7.31-7.41); VBG PO2 56.2 mmol/L (28-40)
[2025-03-02 11:39] LABS: Albumin Level 4.6 g/dl (3.5-5.0); Chloride 98 mmol/L (98-107); Potassium 4.8 mmoL/L (3.5-5.1); Sodium 133 mmol/L (136-145)
[2025-03-02 11:42] LABS: Alanine Aminotransferase 37 U/L (12-78); Albumin/Globulin Ratio 1.2 (1.1-1.8); Alkaline Phosphatase 72 U/L (38-126); Anion Gap 18.8 mEq/L (5-15); Aspartate Amino Transferase 42 U/L (17-59); Bilirubin,Total 1.0 mg/dl (0.2-1.3); Blood Urea Nitrogen 19 mg/dl (9-20); Carbon Dioxide 21 mmol/L (22.0-30.0); Creatinine Clearance Estimated 99 mL/min (50-200); Creatinine,Serum 0.90 mg/dl (0.66-1.25); Estimated Glomerular Filt Rate 86 ml/min (>60); GFR (African American) 105 ML/MIN (>60); Globulin 3.7 g/dL (1.3-3.2); Total Protein,Serum 8.3 g/dl (6.3-8.2)
[2025-03-02 11:43] LABS: Calcium 9.8 mg/dl (8.4-10.2); Glucose 159 mg/dl (74-100); Magnesium 2.1 mg/dl (1.6-2.3)
[2025-03-02 12:07] LABS: Free T4 (Free Thyroxine) 1.06 ng/dl (0.78-2.19)
[2025-03-02 12:09] LABS: Acetone, Serum (Rapid) None Detected (None Detect)
[2025-03-02 12:13] LABS: Thyroid Stimulating Hormone 1.56 uIU/mL (0.465-4.68)
[2025-03-02 12:58] LABS: Microscopic, Urine URINE MICROSCOPIC (MICROSCOPIC)
[2025-03-02 13:00] LABS: Bilirubin,Urine Negative (Negative); Color,Urine YELLOW (Yellow); Glucose,Urine (UA) 3+ (Negative); Ketones,Urine 3+ (Negative); Leukocyte Esterase,Urine Negative (Negative); PH,Urine 5.5 (5.0-8.5); Protein,Urine Negative (Negative); Specific Gravity, Urine 1.020 (1.005-1.030); Urobilinogen,Urine 0.2 EU/dl (0.2)
--- NOTE | 2025-03-02 13:47 | XR_ITS ---
FINAL REPORT CLINICAL HISTORY: syncope FINDINGS: A portable view of the chest was obtained. Cardiac and mediastinal silhouettes are within normal limits. There is linear atelectasis or scarring in the left lung base. There is no pleural effusion or pneumothorax. IMPRESSION: Linear atelectasis or scar in the left lung base. Reviewed, Interpreted and Dictated by Dyana Osman MD Transcribed by Brianna Newman Authenticated and [facility]
--- NOTE | 2025-03-02 13:49 | PC.NURSE ---
Dr Feldman paged per Dr Bertrand.
--- NOTE | 2025-03-02 13:52 | PC.NURSE ---
PORTABLE CHEST XRAY AT BEDSIDE
--- NOTE | 2025-03-02 14:11 | PC.NURSE ---
PROVIDED PT WITH [employer]
--- NOTE | 2025-03-02 14:45 | EXP.CARD.CON ---
History of Present Illness History of Present Illness Consult date: 03/02/25 Requesting physician: Arnulfo Bertrand Chief complaint: Syncope History of present illness: Ana Liu is a 59-year-old white male with a past medical history of diabetes mellitus type 2 and hypertension who presented to emergency department with complaints of syncope. Patient reports he was in his normal state of health on Thursday at work at [employer] when he had a syncopal episode. He reports he was walking back from the restroom and passed out. He denies hitting his head or injury. Patient denies any symptoms leading up to the event such as chest pain, shortness of breath or dizziness. Patient reports his made him come to the ER. The only thing that is been abnormal for him is his sugars have been running a little high at home in the 200-300 range but today in the ER it is in the 150. He denies any recent changes to his medications. Denies any further symptoms since event. EKG upon presentation to ER shows normal sinus rhythm-negative for STEMI. Labs are as follows: WBC 6.3, hemoglobin 17.6, sodium 133, potassium 4.8, creatinine 0.9, glucose 159, TSH and free T4 normal. Preliminary chest x-ray is negative for acute cardiopulmonary process but official read is pending. Patient has had no further episodes of syncope since Thursday. [facility] Disclaimer: The information contained in this section may have been updated after the patient was seen, as this information can be updated by other users. Medical History (Updated 03/02/25 @ 14:49 by Magali Wyatt APRN) Swelling of elbow joint Social History (Updated 09/23/24 @ 18:02 by Lydia Olmstead APRN) Smoking Status: Never smoker alcohol intake: never current occupational status: employed Travel in the last 8 weeks?: None Review of Systems Review of Systems Review of systems:: pertinent systems reviewed and negative unless documented below Constitutional Comments: Syncope Exam Data for Last 24 hours Vital signs and Labs for Last 24 Hours: Temp Pulse Resp BP Pulse Ox O2 Del Method 98 F 77 18 148/102 H 97 Room Air 03/02/25 10:34 03/02/25 14:00 03/02/25 14:00 03/02/25 14:00 03/02/25 14:00 03/02/25 11:11 Laboratory Results - last 24 hr 03/02/25 11:20: WBC 6.3, RBC 5.93, Hgb 17.6, Hct 50.9, MCV 85.8, MCH 29.7, MCHC 34.6, RDW 13.2, Plt Count 219, MPV 9.6, Neut % (Auto) 71.2, Lymph % (Auto) 14.9, [place] % (Auto) 7.3, Eos % (Auto) 5.2, Baso % (Auto) 0.9, Neut # (Auto) 4.5, Lymph # (Auto) 0.9, [place] # (Auto) 0.5, Eos # (Auto) 0.3, Baso # (Auto) 0.1, VBG pH 7.36, VBG pCO2 34.8 L, VBG pO2 56.2 H, VBG HCO3 19.2 L, VBG Total CO2 20.3 L, VBG O2 Saturation 88.6 H, VBG Base Excess -6.2 L, VBG Lactic Acid 1.9, Sodium 133 L, Potassium 4.8, Chloride 98, Carbon Dioxide 21 L, Anion Gap 18.8 H, BUN 19, Creatinine 0.90, Estimated Creat Clear 99, Estimated GFR 86, Est GFR ( Amer) 105, Glucose 159 H, Calcium 9.8, Magnesium 2.1, Total Bilirubin 1.0, AST 42, ALT 37, Alkaline Phosphatase 72, Total Protein 8.3 H, Albumin 4.6, Globulin 3.7 H, Albumin/Globulin Ratio 1.2, TSH 1.56, Free T4 1.06, Acetone Level None detected 03/02/25 12:53: Urine Color Yellow, Urine Appearance Clear, Urine pH 5.5, Ur Specific [place] 1.020, Urine Protein Negative, Urine Glucose (UA) 3+, Urine Ketones 3+, Urine Blood Negative, Urine Nitrate Negative, Urine Bilirubin Negative, Urine Urobilinogen 0.2, Ur Leukocyte Esterase Negative, Urine RBC None, Urine WBC None, Ur Squamous Epith Cells None, Urine Bacteria None I & O for Last 24 hours: Intake & Output 02/27/25 02/28/25 03/01/25 03/02/25 23:59 23:59 23:59 23:59 Intake Total 1000 / 1000 Balance 1000 / 1000 Weight 175 lb Constitutional Constitutional: no acute distress *Routine Respiratory Exam Respiratory: Present CTA bilaterally and symmetric chest movement *Routine Cardiovascular Exam Cardiovascular: Present RRR, Normal S1 and Normal S2 *Routine Abdominal Exam Abdominal: Present soft and normoactive bowel sounds; Absent tenderness *Routine Extremities Exam Extremities: Present full ROM and normal capillary refill; Absent edema *Routine Skin Exam Skin: Present intact, dry and warm Detailed Neck Exam: Thyroids Thyroid: Absent bruit Meds Home Medications and Allergies Home Medications ?Medication ?Instructions ?Recorded ?Confirmed ?Type No Known Home Medications 09/23/24 09/23/24 History New Prescriptions to Start Prescriptions: Allergies Allergy/AdvReac Type Severity Reaction Status Date / Time No Known Allergies Allergy Verified 03/02/25 10:39 Assessment and Plan *Assessment and plan (1) Syncope: Status: Acute Category: Medical Code(s): R55 - Syncope and collapse Plan Episode of syncope on Thursday Patient denies chest pain or shortness of breath No further episodes of syncope Labs essentially unremarkable No use of beta-blockers Chest x-ray clear Recommend rule out PE with D-dimer and subsequent CTA chest if needed If D-dimer or CTA chest negative patient can be discharged home with a 2-week event monitor and follow-up in the cardiology clinic tomorrow for reevaluation at 9am.
--- NOTE | 2025-03-02 14:49 | PC.NURSE ---
Called Resp per Dr Bertrand for them to put an event monitor on this pt for 48 hrs
[2025-03-02 14:57] LABS: D-Dimer 0.66 ug/mL (0.0-0.5)
--- NOTE | 2025-03-02 15:17 | CT_ITS ---
FINAL REPORT TECHNIQUE: Axial imaging of the chest is obtained after the administration of contrast. 3-D MIP reformatted images were also obtained and reviewed per PE protocol. This study was performed with techniques to keep radiation doses as low as reasonably achievable, (ALARA). Individualized dose reduction techniques using automated exposure control or adjustment of mA and/or kV according to the patient's size were employed. CLINICAL HISTORY: Syncope, elevated d dimer FINDINGS: The pulmonary arteries are well filled. There is no evidence of pulmonary embolus. There is no aortic dissection. Heart size is normal. There is no mediastinal, hilar, or axillary lymphadenopathy. There is a 4 mm subpleural right middle lobe pulmonary nodule on series 5, image 62. There is linear atelectasis in the lingula. There is no pleural or pericardial effusion. Limited evaluation of the upper abdomen is without acute abnormality. No acute osseous abnormality. IMPRESSION: No evidence of pulmonary embolism or aortic dissection. Right middle lobe pulmonary nodule measures 4 mm. Recommend follow-up after risk stratification per Fleischner criteria. Reviewed, Interpreted and Dictated by Dyana Osman MD Transcribed by Brianna Newman Authenticated and [facility]
[2025-03-02] MEDS: SODIUM CHLORIDE 0.9% 10ML SYR (RAD ONLY) 10 ML IV (15:35)
[2025-03-02] MEDS: 0.9 % SODIUM CHLORIDE 50 ML VIAL IV (15:35)
[2025-03-02] MEDS: IOPAMIDOL-370 (76%);100ML BOTTLE 70 ML IV (15:35)
== END 2025-03-02 16:30 | disposition home or self-care (01) ==
PROVIDERS: Emergency Provider Emergency Medicine; PCP Family Medicine
DX: R55 Syncope and collapse (principal); R91.1 Solitary pulmonary nodule; E11.9 Type 2 diabetes mellitus without complications; I10 Essential (primary) hypertension
CPT/HCPCS: 71045; 71275; 80053; 81001; 82009; 82803; 83735; 84439; 84443; 85025; 85378; 93005; 93225; 93227; 96360; 99285; J7120; Q9967

== ENCOUNTER 2025-03-03 09:18 | Outpatient (CLI) | payer BC, SELFPAY ==
--- OUTSIDE RECORDS SUMMARY | 2025-03-03 09:28 | XMS_ITS | Continuity of Care Document ---
Author Organization [facility], ORTHOPEDICS [address] [place] [address] Care Team Providers Care Visual Merchandiser Name Role Phone CRISTAL WHELAN Primary Care Provider TANIKAHALLEYELANA Seismic Observer Assessment No assessment recorded. Plan of Treatment Reminders Order Date Submit Date Provider Last Modified By Organization Details Last Modified Time Details Appointments None record ed. Lab None record ed. Referral None record ed. Procedures None record ed. Surgeries None record ed. Imaging None record ed. Medication Orders None record ed. Patient TargetsNo targets recorded. Patient Instructions Encounter Date Encounter Id Patient Instructions Last Modified By Organization Details Last Modified Time 02/27/2025 [id number] He is return to work with no restrictions, I would recommend he go through work conditioning initially. Differential diagnosis for his continued area of tenderness would be persistent olecranon bursitis, partial triceps tendon tear. If his symptoms recur we will go ahead and get another MRI of his right elbow for repeat evaluation. [email or web address] Not available 02/27/2025 13:00:07 Reason for Referral None Reported. Results Created Date Observation Date Name Description Value Unit Range Abnormal Flag Note LastModifiedBy Organization Detail LastModifiedTime 03/02/2003/02/2025 imagi ng/di agnos tic resul t No observ ation record ed. [facility] [address], [place], [id number], 03/02/2025 16:09:31 03/02/20 25 03/02/2025 imagi ng/di agnos tic resul t No observ ation record ed. [facility] [address], [place], [id number], 03/02/2025 16:09:59 03/03/2003/02/2025 imagi ng/di agnos tic resul t No observ ation record ed. [facility] (X-Ray) [address], [place], [id number], 03/03/2025 04:03:04 Result Notes None recorded. Problems Name Problem SNOMED Code Status Onset Date Resolution Date Notes Provider Name and Address Organization Details Recorded Time Paresthesia of lower extremity 669798017 Active 2023 CRISTAL WHELAN DO [address] [place], [address], [facility] 14:25:28 Type 2 diabetes mellitus 08083957 Active 2023 CRISTAL WHELAN DO [facility] [place], [address], [facility] 4 12:18:44 Type 2 diabetes mellitus without complication 189818747 Active 2023 CRISTAL WHELAN DO [address] [place], [address], [facility] 4 11:28:19 Uncontrolled type 2 diabetes mellitus 843552952 Active 2023 CRISTAL WHELAN DO [facility] [place], [address], [facility] 4 11:30:10 Fatigue 27922689 Active 2024 CRISTAL WHELAN DO [address] [place], [address], [facility] 5 13:44:35 Erectile dysfunction 522953306 Active 2024 CRISTAL WHELAN DO [address] [place], [address], [facility] 5 13:52:02 Problem Notes None recorded. Procedures Surgical History Date Name Laterality Status Provider Name and Address Organization Details Recorded Time procedure on nasal septum completed Maryadam Borja [facility] 02/13/2023 13:14:55 Imaging Results None recorded. Procedure Notes None recorded. Medical Equipment None Reported. Allergies No known drug allergies Medications Name Sig Start Date Stop Date Status Note LastModified by Organization Details LastModified Time amoxicillin 500 mg capsule TAKE 1 CAPSULE BY MOUTH THREE TIMES DAILY UNTIL GONE 03/09 completed Not Available Not Available Not Available sildenafil 50 mg tablet TAKE 1 TABLET BY MOUTH 30 MINUTES -4 HOURS BEFORE SEXUAL ACTIVITY 09/26 completed Not Available Not Available Not Available meloxicam 15 mg tablet TAKE 1 TABLET BY MOUTH ONCE DAILY FOR 10 DAYS 10/21 completed Not Available Not Available Not Available sulfamethox azole 800 mg-trimetho prim 160 mg tablet TAKE 1 TABLET BY MOUTH EVERY 12 HOURS FOR 7 DAYS active Not Available Not Available No t Available metformin 1,000 mg tablet TAKE 1 TABLET BY MOUTH TWICE DAILY 03/09 completed Not Available Not Available Not Available lisinopril 10 mg tablet TAKE 1 TABLET BY MOUTH ONCE DAILY active Not Available Not Available No t Available metformin ER 500 mg tablet,exte nded release 24 hr TAKE 1 TABLET BY MOUTH TWICE DAILY 09/16 completed Not Available Not Available Not Available chlorhexidi ne gluconate 0.12 % mouthwash RINSE WITH 15ML FOR 30 SECONDS AND SPIT, USE TWICE DAILY 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 09/26 completed Not Available Not Available Not Available Bactrim 10/05 completed Not Available Not Available Not Available metformin ER 500 mg 24 hr tablet,exte nded release (gastric retention) Take 1 tablet twice a day by oral route for 90 days. 09/16 completed Not Available Not Available Not Available metformin ER 1,000 mg 24 hr tablet,exte nded release (gastric reten.) Take 1 tablet every day by oral route. 03/09 completed Not Available Not Available Not Available Jardiance 10 mg tablet TAKE 1 TABLET BY MOUTH ONCE DAILY 09/26 completed Not Available Not Available Not Available Jardiance 25 mg tablet Take 1 tablet by mouth once daily for 90 days 2024 active Not Available Not Available Not Avai lable Vitals Date Recorded Body height Body mass index (BMI) Body weight Provider Name and Address Organization Details Last Updated DateTime 02/27/2025 170.18 cm 26.2 kg/m2 06478.93 g Jeffrey Cottrell [facility] 02/27/2025 10:57:30 Social History Question Answer Notes LastModified by Organizat ion Details LastModified Time Tobacco Smoking Status Never Smoker Mary Crossjohanna bahena, [facility] 02/13/2023 13:13:43 What Was The Date Of Your Most Recent Tobacco Screening? 02/13/2023 Information not available 02/13/2023 How Many Children Do You Have? 4 Information not available 02/13/2023 What Is Your Relationship Status? Information not available 02/13/2023 Has Tobacco Cessation Counseling Been Provided? No Information not available 02/13/2023 Sex: Male Functional Status Question Answer Note LastModified by Organization D etails LastModified Time What is your level of alcohol consumption? None Information not available 02/13/2023 Are you currently employed? Yes Information not available 02/13/2023 Mental Status None recorded. Family History Nothing Reported. Medical History Condition Response Arthritis N Hospitalizations Y Asthma N High Cholesterol N Allergies/Hayfever N Hypertension Y Past Encounters Encounter ID Performer Location Encounter Start Date Encounter Closed Date Diagnosis/Indication Diagnosis SNOMED-CT Code Diagnosis ICD10 Code Diagnosis IMO Codes Diagnosis Note [id number] MERYL HARRIS PA-C [facility] [address] [place] [address] 02/27/2025 10:48:27 02/27/2025 11:13:14 Pain of elbow region 65955420 M25.521 [id number] With history of cellulitis that has responded well to antibiotic s. He may have a partial tendon tear at the triceps tendon insertion. Health Concerns Section Related Observation LastModified by Organization Detai ls LastModified Time None Recorded Concern Status LastModified by Organization Details LastModified Time None Recorded Payers Encounter Date Sequence Insurance Name Policy Number Policy [place] Covered Member ID [place] Member ID Guarantor Name 02/27/2025 MONICA Liu Notes Date Note Type Note Provider Name and Address Organization Details Recorded Time 02/27/2025 text/html Patient arrives for scheduled follow-up. He has been attending therapy and feels like he has made excellent progress. He has much less pain and has full range of motion of the elbow. Consult requested by:Primary Care Physician: Dr. Cristal Whelan Hand dominance: RightLocation: Right Elbow Pain level: 3 /10 at 1 pinpoint area of the elbow Date of injury: 01/16/2025Duration : 6 weeks Recent Surgery: NoProcedure:Date of surgery:Duration: In office procedure? No Previous upper extremity surgery? NoProcedure:Approx imate date of surgery:Surgeon (if known): Have you or any of your immediate family members been seen by our hand surgeons before? 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 Liu presents to the office for a follow up of the right elbow. Pt states he finished the antibiotic. He reports intermittent soreness and stiffness in the elbow with overuse. MERYL HARRIS PA-C [address] [place], [address], [facility] 02/27/2025 13:00:24
--- OUTSIDE RECORDS SUMMARY | 2025-03-03 09:29 | XMS_ITS | Continuity of Care Document ---
Author Organization [facility], ORTHOPEDICS [address] [place] [address] Care Team Providers Care Trade Recruiter Name Role Phone CRISTAL WHELAN Primary Care Provider [phone] ELANA SAGASTUME Senior Health Consultant Assessment No assessment recorded. Plan of Treatment [...] Modified By Organization Details Last Modified Time 01/18/2025 [id number] Since they have already started him on antibiotics I feel it is worth giving them a chance to help. Differential would include gout is a possibility. I will have him follow-up on Thursday for repeat evaluation. If he is still severely painful and there does not appear to be any increased signs of infection we will consider trial of colchicine plus or minus indomethacin. Work restrictions are provided. [email or web address] Not available 01/18/2025 15:40:45 Reason for Referral None Reported. Results Created Date Observation Date Name Description Value Unit Range Abnormal Flag Note LastModifiedBy Organization Detail LastModifiedTime 03/02/2003/02/2025 imagi ng/di agnos tic resul t No observ ation record ed. [facility] [address], [place], [id number], 03/02/2025 16:09:31 03/02/2003/02/2025 imagi ng/di agnos tic resul t No observ ation record ed. [facility] [address], [place], [id number], 03/02/2025 16:09:59 03/03/20 25 03/02/2025 imagi ng/di agnos tic resul t No observ ation record ed. [facility] (X-Ray) [address], [place], [id number], 03/03/2025 04:03:04 Result Notes None recorded. Problems Name Problem SNOMED Code Status Onset Date Resolution Date Notes Provider Name and Address Organization Details Recorded Time Paresthesia of lower extremity 065320243 Active 2023 CRISTAL WHELAN DO [address] [place], [address], [facility] 14:25:28 Type 2 diabetes mellitus 92550449 Active 2023 CRISTAL WHELAN DO [facility] [place], [address], [facility] 4 12:18:44 Type 2 diabetes mellitus without complication 876170312 Active 2023 CRISTAL WHELAN DO [address] [place], [address], [facility] 4 11:28:19 Uncontrolled type 2 diabetes mellitus 746553495 Active 2023 CRISTAL WHELAN DO [address] [place], [address], [facility] 4 11:30:10 Fatigue 18870508 Active 2024 CRISTAL WHELAN DO [address] [place], [address], [facility] 5 13:44:35 Erectile dysfunction 986364034 Active 2024 CRISTAL WHELAN DO [address] [place], [address], [facility] 5 13:52:02 Problem Notes None recorded. Procedures Surgical History Date Name Laterality Status Provider Name and Address Organization Details Recorded Time procedure on nasal septum completed Mary Borja [facility] 02/13/2023 13:14:55 Imaging Results None recorded. Procedure [...] lable Vitals Date Recorded Body height Body weight Provider Name and Address Organization Details Last Updated DateTime 01/18/2025 170.18 cm 38001.93 g Zina Mariano [facility] 01/18/2025 13:23:15 Social History Question Answer Notes LastModified by Organizat ion Details LastModified Time Tobacco Smoking Status Never Smoker Mary Powelljamari [facility] 02/13/2023 13:13:43 What Was The Date Of [...] ICD10 Code Diagnosis IMO Codes Diagnosis Note [id number] MERYL HARRIS PA-C [facility] [address] [place] [address] 01/18/2025 12:55:55 01/18/2025 13:37:35 Pain of elbow region 99260107 M25.521 [id number] With history of cellulitis that responded well to antibiotic s. Health Concerns Section Related Observation LastModified by Organization Detai ls LastModified Time None Recorded Concern Status LastModified by Organization Details LastModified Time None Recorded Payers Encounter Date Sequence Insurance Name Policy Number Policy [place] Covered Member ID [place] Member ID Guarantor Name 01/18/2025 ANDREM Tmmk Ashleigh Liu Notes Date Note Type Note Provider Name and Address Organization Details Recorded Time 01/18/2025 text/html Patient returns with recurrent swelling, redness, and pain at the right elbow olecranon. [facility] and started on antibiotics Thursday. He reports the pain is 7 out of 10. Denies fever or other injury. Consult requested by:Primary Care Physician: Dr. Cristal Whelan Hand dominance: RightLocation: Right Elbow Pain level: Date of injury: 01/16/2025Duration : 2 Days Recent Surgery: NoProcedure:Date of surgery:Duration: In office procedure? No Previous upper extremity surgery? NoProcedure:Approx imate date of surgery:Surgeon (if known): Have you or any of your immediate family members been seen by our hand surgeons before? 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 Liu is here for recheck of rt elbow. He notes that he didn't have an injury but on Thursday he was at work and started to have pain. He notes that the bursa never went away but the redness/infection/ pain did. He notes that he went to [facility] and they placed him on Bactrim. He has been taking ibuprofen as well as tylenol to help with it. MERYL HARRIS PA-C [address] [place], [address], [facility] 01/18/2025 15:41:14
--- OUTSIDE RECORDS SUMMARY | 2025-03-03 09:29 | XMS_ITS | Continuity of Care Document ---
Author Organization [facility], ORTHOPEDICS [address] [place] [address] Care Team Providers Care Safety Officer Name Role Phone JAZMINE WHELAN Primary Care Provider ELANA SAGASTUME [employer] [phone] Assessment No assessment recorded. Plan of Treatment [...] Modified By Organization Details Last Modified Time 01/23/2025 [id number] Finish out the antibiotics. Work restrictions centered around protecting the olecranon point from impact to avoid developing bursal swelling. Follow-up in 4 weeks for what is hoped a final visit. If anything worsens before the scheduled follow-up he is instructed to contact us immediately for an earlier appointment. [email or web address] Not available 01/23/2025 16:37:34 Reason for Referral None Reported. Results Created Date Observation Date Name Description Value Unit Range Abnormal Flag Note LastModifiedBy Organization Detail LastModifiedTime 03/02/2003/02/2025 imagi ng/di agnos tic resul t No observ ation record ed. [facility] [address], [place], [id number], 03/02/2025 16:09:31 03/02/20 25 03/02/2025 imagi ng/di agnos tic resul t No observ ation record ed. [facility] [address], [place], [id number], 03/02/2025 16:09:59 03/03/20 25 03/02/2025 imagi ng/di agnos tic resul t No observ ation record ed. [facility] (X-Ray) [address], [place], [id number], 03/03/2025 04:03:04 Result Notes None recorded. Problems Name Problem SNOMED Code Status Onset Date Resolution Date Notes Provider Name and Address Organization Details Recorded Time Paresthesia of lower extremity 930566915 Active 2023 JAZMINE WHELAN, DO [address] [place], [address], [facility] 14:25:28 Type 2 diabetes mellitus 41179836 Active 2023 JAZMINE WHELAN DO [address] [place], [address], [facility] 12:18:44 Type 2 diabetes mellitus without complication 891911340 Active 2023 JAZMINE WHELAN DO [address] [place], [address], [facility] 11:28:19 Uncontrolled type 2 diabetes mellitus 551899109 Active 2023 JAZMINE WHELAN DO [address] [place], [address], [facility] 4 11:30:10 Fatigue 29915588 Active 2024 JAZMINE WHELAN DO [address] [place], [address], [facility] 5 13:44:35 Erectile dysfunction 317419326 Active 2024 JAZMINE WHELAN DO [address] [place], [address], [facility] 5 13:52:02 Problem Notes None recorded. Procedures [...] and Address Organization Details Last Updated DateTime 01/23/2025 170.18 cm 26.2 kg/m2 70040.93 g Zina Mariano [facility] 01/23/2025 09:05:39 Social History Question Answer Notes LastModified by Organken bryan Details LastModified Time Tobacco Smoking Status Never [facility]oker [facility]/13[facility] 13:13:43 What Was The Date Of [...] History Nothing Reported. Medical History Condition Response Allergies/Hayfever N Arthritis N High Cholesterol N Hospitalizations Y Hypertension Y Asthma N Past Encounters Encounter ID Performer Location Encounter Start Date Encounter Closed Date Diagnosis/Indication Diagnosis SNOMED-CT Code Diagnosis ICD10 Code Diagnosis IMO Codes Diagnosis Note [id number] GENE QUEZADAI CS [address] [place] [address] 01/18/2025 12:55:55 01/18/2025 13:37:35 Pain of elbow region 19694102 M25.521 072605 With history of cellulitis that responded well to antibiotic s. [id number] GENE QUEZADAEDI CS [address] [place] [address] 01/23/2025 09:02:48 01/23/2025 09:20:59 Pain of elbow region 81674985 M25.521 301709 With history of cellulitis that has responded well to antibiotic s. Health Concerns Section Related Observation LastModified by Organization Kayla de la rosa LastModified Time None Recorded Concern Status LastModified by Organization Details LastModified Time None Recorded Payers Encounter Date Sequence Insurance Name Policy Number Policy [place] Covered Member ID [place] Member ID Guarantor Name 01/23/2025 MONICA Liu Notes Date Note Type Note Provider Name and Address Organization Details Recorded Time 01/23/2025 text/html Patient reports that his elbow is doing really well at this point. He is still taking the Bactrim. He states there is 1 small area that if it is impacted its painful, otherwise much less swelling, much less pain. He is working with restrictions. Consult requested by:Primary Care Physician: Dr. Jazmine Whelan Hand dominance: RightLocation: Right Elbow Pain level: 0 /10 Date of injury: 01/16/2025Duration : 7 Days Recent Surgery: NoProcedure:Date of surgery:Duration: In office procedure? No Previous upper extremity surgery? NoProcedure:Approx imate date of surgery:Surgeon (if known): Have you or any of your immediate family members been seen by our hand surgeons before? 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 Liu presents to the office for a follow up of the right elbow. He notes that he is doing better. He states that he is still taking the bactrim. He notes that he has one small spot that is tender if it is pushed on. He states that he went to work on and they put him on the floor but he started to have pain then. MERYL HARRIS PA-C [address] [place], [address], [facility] 01/23/2025 16:37:52
--- OUTSIDE RECORDS SUMMARY | 2025-03-03 09:29 | XMS_ITS | Data Portability ---
Author Organization [facility] Address [address] [place] [address] Care Team Providers Care Medical Physiologist Name Role Phone GODFREY WHELANE Primary Care Provider TANIKAHALLEYELANA Sprinkler Repair Technician Assessment No assessment recorded. Plan of Treatment Reminders Order Date Submit Date Provider Last Modified By Organization Details Last Modified Time Details Appointments None recorded. Lab None recorded. Referral None recorded. Procedures None recorded. Surgeries None recorded. Imaging None recorded. Medication Orders Bactrim DS 800 mg-160 mg tablet 025 025 [facility] 591, [address], [address], 12:01:49 Patient TargetsNo targets recorded. Patient Instructions Encounter Date Encounter Id Patient Instructions Last Modified By Organization Details Last Modified Time 10/21/2024 [id number] He can use his hand as tolerated. He is instructed in signs and symptoms of recurrent infection and will contact us if he sees this. I gave him the name of an elbow pad he can purchase online to protect the elbow from impact, he can wear that at work or at home. He is released to full duty. Follow-up as needed. He is at [facility] with no PPI. jadiel Not available 10/21/2024 10:58:13 01/18/2025 [id number] Since they have already started him on [...] are provided. jadiel Not available 01/18/2025 15:40:45 01/23/2025 [id number] Finish out the antibiotics. Work restrictions centered around protecting the olecranon point from impact to avoid developing bursal swelling. Follow-up in 4 weeks for what is hoped a final visit. If anything worsens before the scheduled follow-up he is instructed to contact us immediately for an earlier appointment. jadiel Not available 01/23/2025 16:37:34 02/27/2025 [id number] He is return to work with no [...] Abnormal Flag Note LastModifiedBy Organization Detail LastModifiedTime 09/17/1909/16/2024 TESTO STERO NE, TOTAL testosterone , total 334 NG/dL 193-74 0 normal Refer ence range is for age 50 years and over. Not Available [facility] [place], [address], 09/16/2024 19:08:30 09/17/1909/16/2024 TSH TSH 1.530 u[IU] /mL 0.270- 4.200 normal Not Available [facility] [address] [place], [address], 09/16/2024 19:08:31 09/17/19 25 09/16/2024 B12/F OLIC ACID PANEL folic acid >20.0 NG/mL 4.6-34 .8 normal Not Available [facility] [address] [place], [address], 09/16/2024 19:12:30 09/17/19 25 09/16/2024 B12/F OLIC ACID PANEL vitamin B12 629 pg/mL 232-12 45 normal Not Available [facility] [address] [place] [address], [address], 09/16/2024 19:12:30 09/17/19 25 09/16/2024 COMPL ETE BLOOD COUNT white blood cells 5.2 10*3/ uL 3.8-10 .8 normal Not Available [facility] [address] [place] [address], [address], 09/16/2024 19:13:11 09/17/19 25 09/16/2024 COMPL ETE BLOOD COUNT red blood cells 5.89 10*6/ uL 4.20-5 .80 high Not Available [facility] [address] [place] [address], [address], 09/16/2024 19:13:11 09/17/19 25 09/16/2024 COMPL ETE BLOOD COUNT hemoglobin 17.3 g/dL 14.0-1 8.0 normal Not Available [facility] [address] [place] [address], [address], 09/16/2024 19:13:11 09/17/19 25 09/16/2024 COMPL ETE BLOOD COUNT hematocrit 51.1 % 40.0-5 2.0 normal Not Available [facility] [address] [place] [address], [address], 09/16/2024 19:13:11 09/17/19 25 09/16/2024 COMPL ETE BLOOD COUNT MCV 87 fL 80-100 normal Not Available [facility] [address] [place] [address], [address], 09/16/2024 19:13:11 09/17/19 25 09/16/2024 COMPL ETE BLOOD COUNT MCH 29 pg 26-35 normal Not Available [facility] [address] [place] [address], [address], 09/16/2024 19:13:11 09/17/19 25 09/16/2024 COMPL ETE BLOOD COUNT MCHC 34 g/dL 32-36 normal Not Available [facility] [address] [place] [address], [address], 09/16/2024 19:13:11 09/17/19 25 09/16/2024 COMPL ETE BLOOD COUNT RDW 13.9 % 11.0-1 5.0 normal Not Available [facility] [address] [place] [address], [address], 09/16/2024 19:13:11 09/17/19 25 09/16/2024 COMPL ETE BLOOD COUNT MPV 8.6 fL 6.2-10 .5 normal Not Available [facility] [address] [place] [address], [address], 09/16/2024 19:13:11 09/17/19 25 09/16/2024 COMPL ETE BLOOD COUNT platelet count 200 10*3/ uL 150-40 0 normal Not Available [facility] [address] [place] [address], [address], 09/16/2024 19:13:11 09/17/19 25 09/16/2024 COMPL ETE BLOOD COUNT neutrophil,a bsolute 3.3 10*3/ uL 1.6-8. 4 normal Not Available [facility] [address] [place] [address], [address], 09/16/2024 19:13:11 09/17/1909/16/2024 COMPL ETE BLOOD COUNT lymphocyte,a bsolute 1.1 10*3/ uL 0.4-5. 1 normal Not Available [facility] [address] [place] [address], [address], 09/16/2024 19:13:11 09/17/19 25 09/16/2024 COMPL ETE BLOOD COUNT monocyte,abs olute 0.5 10*3/ uL 0.0-1. 2 normal Not Available [facility] [address] [place] [address], [address], 09/16/2024 19:13:11 09/17/19 25 09/16/2024 COMPL ETE BLOOD COUNT eosinophil,a bsolute 0.2 10*3/ uL 0.0-0. 8 normal Not Available [facility] [address] [place] [address], [address], 09/16/2024 19:13:11 09/17/19 25 09/16/2024 COMPL ETE BLOOD COUNT basophil,abs olute 0.0 10*3/ uL 0.0-0. 3 normal Not Available [facility] [address] [place] [address], [address], 09/16/2024 19:13:11 09/17/19 25 09/16/2024 COMPL ETE BLOOD COUNT % neutrophils 63.3 % 42.0-7 8.0 normal Not Available [facility] [address] [place] [address], [address], 09/16/2024 19:13:11 09/17/19 25 09/16/2024 COMPL ETE BLOOD COUNT % lymphocytes 21.9 % 11.0-4 7.0 normal Not Available [facility] [address] [place] [address], [address], 09/16/2024 19:13:11 09/17/19 25 09/16/2024 COMPL ETE BLOOD COUNT % monocytes 9.8 % 0.0-11 .0 normal Not Available [facility] [address] [place] [address], [address], 09/16/2024 19:13:11 09/17/19 25 09/16/2024 COMPL ETE BLOOD COUNT % eosinophils 4.2 % 0.0-7. 0 normal Not Available [facility] [address] [place] [address], [address], 09/16/2024 19:13:11 09/17/19 25 09/16/2024 COMPL ETE BLOOD COUNT % basophils 0.8 % 0.0-3. 0 normal Not Available [facility] [address] [place] [address], [address], 09/16/2024 19:13:11 09/17/19 25 09/16/2024 COMPL ETE BLOOD COUNT nucleated red cells 0.1 % 0.0-0. 9 normal Not Available [facility] [address] [place] [address], [address], 09/16/2024 19:13:11 09/17/19 25 09/16/2024 COMPL ETE BLOOD COUNT nucleated RBCs, absolute 0.00 10*3/ uL not estab. normal Not Available [facility] [address] [place] [address], [address], 09/16/2024 19:13:11 09/17/19 25 09/16/2024 COMP. METAB OLIC PANEL glucose 154 mg/dL 74-100 high Not Available [facility] [address] [place] [address], [address], 09/16/2024 19:26:38 09/17/19 25 09/16/2024 COMP. METAB OLIC PANEL blood urea nitrogen 19 mg/dL 6-20 normal Not Available [facility] [address] [place] [address], [address], 09/16/2024 19:26:38 09/17/19 25 09/16/2024 COMP. METAB OLIC PANEL creatinine 0.96 mg/dL 0.70-1 .20 normal Not Available [facility] [address] [place] [address], [address], 09/16/2024 19:26:38 09/17/19 25 09/16/2024 COMP. METAB OLIC PANEL BUN/creatini ne ratio 20 (calc ) 10-20 normal Not Available [facility] [address] [place] [address], [address], 09/16/2024 19:26:38 09/17/19 25 09/16/2024 COMP. METAB OLIC PANEL sodium 136 mmol/ L 136-14 5 normal Not Available [facility] [address] [place] [address], [address], 09/16/2024 19:26:38 09/17/19 25 09/16/2024 COMP. METAB OLIC PANEL potassium 4.4 mmol/ L 3.4-5. 0 normal Not Available [facility] [address] [place] [address], [address], 09/16/2024 19:26:38 09/17/19 25 09/16/2024 COMP. METAB OLIC PANEL chloride 98 mmol/ L 98-107 normal Not Available [facility] [address] [place] [address], [address], 09/16/2024 19:26:38 09/17/19 25 09/16/2024 COMP. METAB OLIC PANEL carbon dioxide 26 mmol/ L 22-31 normal Not Available [facility] [address] [place] [address], [address], 09/16/2024 19:26:38 09/17/19 25 09/16/2024 COMP. METAB OLIC PANEL anion gap 12 (calc ) 7-25 normal Not Available [facility] [address] [place] [address], [address], 09/16/2024 19:26:38 09/17/19 25 09/16/2024 COMP. METAB OLIC PANEL calcium 9.9 mg/dL 8.6-10 .2 normal Not Available [facility] [address] [place] [address], [address], 09/16/2024 19:26:38 09/17/19 25 09/16/2024 COMP. METAB OLIC PANEL total protein 8.1 g/dL 6.4-8. 3 normal Not Available [facility] [address] [place] [address], [address], 09/16/2024 19:26:38 09/17/19 25 09/16/2024 COMP. METAB OLIC PANEL albumin 4.7 g/dL 3.5-5. 2 normal Not Available [facility] [address] [place] [address], [address], 09/16/2024 19:26:38 09/17/19 25 09/16/2024 COMP. METAB OLIC PANEL globulin 3.4 1.5-4. 5 normal Not Available [facility] [address] [place] [address], [address], 09/16/2024 19:26:38 09/17/19 25 09/16/2024 COMP. METAB OLIC PANEL albumin/glob ulin ratio 1.4 (calc ) 1.1-2. 5 normal Not Available [facility] [address] [place] [address], [address], 09/16/2024 19:26:38 09/17/19 25 09/16/2024 COMP. METAB OLIC PANEL bilirubin, total 0.7 mg/dL 0.1-1. 2 normal Not Available [facility] [address] [place] [address], [address], 09/16/2024 19:26:38 09/17/19 25 09/16/2024 COMP. METAB OLIC PANEL alkaline phosphatase 79 U/L 40-129 normal NOTE: NEW DO L RANGE FOR PEDIA TRIC PATIE NTS (<19 YEARS ). Not Available [facility] [address] [place] [address], [address], 09/16/2024 19:26:38 09/17/19 25 09/16/2024 COMP. METAB OLIC PANEL AST 21 U/L 0-40 normal Not Available [facility] [address] [place] [address], [address], 09/16/2024 19:26:38 09/17/19 25 09/16/2024 COMP. METAB OLIC PANEL ALT 28 U/L 0-41 normal Not Available [facility] [address] [place] [address], [address], 09/16/2024 19:26:38 09/17/19 25 09/16/2024 COMP. METAB OLIC PANEL GFR 91 >= 60 normal NOT E New calcu latio n for GFR (CKD- EPI 2020) is formu lated witho ut race adjus tment facto rs at the recom menda tion of the Natio nal Kidne y Found ation and Ameri can Socie ty of Nephr ology . This calcu latio n has not been valid ated in pregn ant women . For pedia tric patie nts refer to https ://annika woodward.nora lopez.o rg/pr madhu hancock s/KDO QI/gf r_cal culat orPed Not Available [facility] [address] [place], [address], 09/16/2024 19:26:38 09/17/19 25 09/16/2024 GLYCO HEMOG LOBIN A1C glyco HGB A1C 8.9 % 0.0-5. 6 high Not Available [facility] [address] [place], [address], 09/16/2024 19:46:31 09/17/1909/16/2024 GLYCO HEMOG LOBIN A1C estimated avg. glucose 209 mg/dL _(erica c) normal A1c value s betwe en 5.7% to 6.4% indic ate predi abete s. Resul ts 6.5% or great er is diagn ostic of diabe yaquelin. Ameri can Diabe yaquelin Assoc iatio n (diab etes. org) Not Available [facility] [address] [place], [address], 09/16/2024 19:46:31 09/24/1909/23/2024 XR, elbow , 3 or more view No observ ation record ed. [facility] [address], [place], [address], 09/27/2024 11:58:51 10/06/19 25 10/05/2024 MRI, elbow , w/o contr ast [address] [address] Patien t Name: RAZIA albrecht : 966 [address] t 46 Orderi ng Provid er: ENRICO GIL EXAM DATE: 2024 EXAM: MR RT ELBOW WITHOU T CONTRA ST HISTOR Y: 59-yea r-old male with right elbow pain, swelli ng and rednes s. COMPAR JOEL: None. FINDIN GS: The bones of the right elbow are normal in alignm ent. There is no marrow edema or perios teal edema. There is no fractu re or pathol ogic intrao sseous lesion . The ulnar collat eral ligame nt, latera l ulnar collat eral ligame nt and radial collat eral ligame nt appear normal . The biceps and brachi mc tendon s appear normal . There is possib le mild tendin osis of the tricep s tendon . The common extens or tendon and common flexor tendon are normal in appear ance. The muscle s about the elbow appear normal . There is modera te dorsal subcut aneous edema with modera te disten tion of the olecra non bursa. No soft tissue mass is identi fied. The neurov ascula r struct ures appear normal . IMPRES ANGI: 1. There is modera te dorsal subcut aneous edema with modera te disten tion of the olecra non bursa. An infect ion cannot be exclud ed. 2. There is possib le mild tendin osis of the distal tricep s tendon . Interp reted By: Frank boston MD Electr onical ly Signed By: Frank boston MD on 025 11:34 AM jadiel [facility] [address] [place] [address], [address], 10/06/2024 10:58:09 03/02/2003/02/2025 imagi ng/di agnos tic resul t No observ ation record ed. [facility] [address], [place], [address], 03/02/2025 16:09:31 03/02/2003/02/2025 imagi ng/di agnos tic resul t No observ ation record ed. [facility] [address], [place], [address], 03/02/2025 16:09:59 03/03/2003/02/2025 imagi ng/di agnos tic resul t No observ ation record ed. [facility] (X-Ray) [address], [place], [address], 03/03/2025 04:03:04 Result Notes Documentation Provider Name and Address Organization Details Recorded Time Mri, Elbow, W/o Contrast : [address] [address] Patient Name: CHACHA LIU Patient : 1965 Patient Ordering Provider: MERYL HARRIS EXAM DATE: 10/05/2024 EXAM: MR RT ELBOW WITHOUT CONTRAST HISTORY: 59-year-old male with right elbow pain, swelling and redness. COMPARISON: None. FINDINGS: The bones of the right elbow are normal in alignment. There is no marrow edema or periosteal edema. There is no fracture or pathologic intraosseous lesion. The ulnar collateral ligament, lateral ulnar collateral ligament and radial collateral ligament appear normal. The biceps and brachialis tendons appear normal. There is possible mild tendinosis of the triceps tendon. The common extensor tendon and common flexor tendon are normal in appearance. The muscles about the elbow appear normal. There is moderate dorsal subcutaneous edema with moderate distention of the olecranon bursa. No soft tissue mass is identified. The neurovascular structures appear normal. IMPRESSION: 1. There is moderate dorsal subcutaneous edema with moderate distention of the olecranon bursa. An infection cannot be excluded. 2. There is possible mild tendinosis of the distal triceps tendon. Interpreted By: Tomasz Miramontes MD L HARRIS PA-C [address] [place] [address], [address], [facility] 10/06/2024 10:58:09 Problems Name Problem SNOMED Code Status Onset Date Resolution Date Notes Provider Name and Address Organization Details Recorded Time Paresthesia of lower extremity 687208990 Active 2023 CRISTAL WHELAN, DO [address] [place] [address], [address], [facility] 4 14:25:28 Type 2 diabetes mellitus 04949882 Active 2023 CRISTAL WHELAN, DO [address] [place] [address], [address], [facility] 4 12:18:44 Type 2 diabetes mellitus without complication 186984599 Active 2023 CRISTAL WHELAN, DO [address] [place] [address], [address], [facility] 4 11:28:19 Uncontrolled type 2 diabetes mellitus 509800308 Active 2023 CRISTAL WHELAN, DO [address] [place] [address], [address], [facility] 4 11:30:10 Fatigue 13263778 Active 2024 CRISTAL WHELAN DO [address] [place] [address], [address], [facility] 5 13:44:35 Erectile dysfunction 246539708 Active 2024 CRISTAL WHELAN DO [address] [place] [address], [address], [facility] 5 13:52:02 Problem Notes None recorded. Procedures Surgical History Date Name Laterality Status Provider Name and Address Organization Details Recorded Time procedure on nasal septum completed Mary Borja [facility] 02/13/2023 13:14:55 Imaging Results None recorded. [...] height Body mass index (BMI) Body weight Pain severity - 0-10 verbal numeric rating [Score] - Reported Provider Name and Address Organization Details Last Updated DateTime 10/05/2024 170.18 cm 26.2 kg/m2 13851.93 g 3 Young Reynoso [facility] 10/05/2024 11:43:07 Date Recorded Body height Body mass index (BMI) Body weight Pain severity - 0-10 verbal numeric rating [Score] - Reported Provider Name and Address Organization Details Last Updated DateTime 10/21/2024 170.18 cm 26.2 kg/m2 63656.93 g 2 Young Reynoso [facility] 10/21/2024 10:26:29 Date Recorded Body height Body weight Provider Name and Address Organization Details Last Updated DateTime 01/18/2025 170.18 cm 20497.93 g Zina [facility] 01/18/2025 13:23:15 Date Recorded Body height Body mass index (BMI) Body weight Provider Name and Address Organization Details Last Updated DateTime 01/23/2025 170.18 cm 26.2 kg/m2 33080.93 g Zina Mariano [facility] 01/23/2025 09:05:39 Date Recorded Body height Body mass index (BMI) Body weight Provider Name and Address Organization Details Last Updated DateTime 02/27/2025 170.18 cm 26.2 kg/m2 66584.93 g Menasha Ronit [facility] 02/27/2025 10:57:30 Social History Question Answer Notes LastModified by Organizat ion Details LastModified Time Tobacco Smoking Status [facility] 13:13:43 What Was The Date [...] History Nothing Reported. Medical History Condition Response Hospitalizations Y Allergies/Hayfever N Arthritis N Hypertension Y Asthma N High Cholesterol N Past Encounters Encounter ID Performer Location Encounter Start Date Encounter Closed Date Diagnosis/Indication Diagnosis SNOMED-CT Code Diagnosis ICD10 Code Diagnosis IMO Codes Diagnosis Note [id number] CRISTAL WHELAN, DO [facility] [place] [id number] [facility] [place] [address] 02/13/2023 12:57:54 02/13/2023 14:10:46 Adult health examination 582426802 Z00.00 -ETOH use - recommend no more than 2 drinks/wee k, although there is no evidence-b ased guidelines for a safe consumptio n amount-Heather ntain healthy lifestyle - discussed hyperlipid emia and other risk factors for cardiovasc ular and diet-relat ed chronic disease. Decrease daily intake of saturated fat, cholestero l, sodium, and added sugar. Increase physical activity as tolerated- will check labs as ordered below and f/u with patient Body mass index 25-29 - overweight 825565842 Z68.27 work on steady and sustained weight loss to mitigate the developmen t of chronic conditions related to unhealthy lifestyles Hypertensive disorder 38 568484 I10 BP seems to be controlled at this timecontin ue with antihypert ensive as prescribed watch added salt in dietincrea se physical activity as toleratedw ill continue to monitor Type 2 wolf betes mellitus 51496088 E11.9 Update hemoglobin U2cHpjbr labs as ordered belowFollo w low glycemic dietWill refill metformin Screening for malignant neoplasm of colon 309768981 Z12.11 Screening for malignant neoplasm of prostate 928925398 Z12.5 [id number] CRISTAL WHELAN, DO [facility] [address] [facility] [place] [address] 03/09/2024 13:49:32 03/09/2024 14:45:47 Hypertensive disorder 13070684 I10 BP seems to be controlled at this timecontin ue with antihypert ensive as prescribed watch added salt in dietincrea se physical activity as toleratedw ill continue to monitor Type 2 wolf betes mellitus 56719978 E11.9 Update hemoglobin [id number] labs as ordered belowSuspe ct metformin may be a factor in issue with loose stools. Did discuss switching from metformin to an alternativ e. Will follow-up with patient once labs are reviewed Paresthesi a of lower extremity 981872439 R20.2 Screening for malignant neoplasm of colon 978900497 Z12.11 [id number] CRISTAL WHELAN, DO [facility] [address] [facility] [place] [address] 03/16/2024 11:09:27 03/16/2024 11:46:00 Uncontrolled type 2 diabetes mellitus 672344813 E11.65 continue with jardiance as prescribed f/u in office in about 2-3 months and update F6Xtucrky low glycemic diet Body mass index 25-29 - overweight 579792087 Z68.27 work on steady and sustained weight loss to mitigate the developmen t of chronic conditions related to unhealthy lifestyles [id number] CRISTAL WHELAN, DO [facility] [address] [facility] [place] [address] 09/16/2024 13:10:31 09/16/2024 16:23:27 Fatigue 15272480 R53.83 update labs to r/o deficienci es, anemias, thyroid dysfunctio nwill f/u with patient on results and plan of management patient will f/u with provider on FMLA paperwork Uncontroll ed type 2 diabetes mellitus 358423922 E11.65 considered this either being hypo or hyperglyce vincent,patien t encouraged to monitor his BS frequently , update A1C Erectile dysfunction 860 969864 F52.21 c/o fatigue and ED, check testostero ne level, will also give trial of sildenafil [id number] LANDRY TAVERAS MD [facility] [address] [address] 09/26/2024 14:02:26 09/26/2024 14:42:09 Cellulitis of right elbow 4991415991 [id number] L03.113 [id number] No current hard signs of deep infection, p.o. antibiotic s x 2 days then follow-up and consider MRI- Oral antibiotic s for 2 days. - Meloxicam for inflammati on. - Apply ice for swelling relief. - Avoid use of sling. - Follow-up scheduled. - Consider MRI if no improvemen t. [id number] MERYL HARRIS PA-C [facility] [address] [place] [address] 6 09/28/2024 10:56:29 09/28/2024 11:38:26 Cellulitis of right elbow 2856955554 [id number] L03.113 [id number] Still no obvious abscess. [id number] LANDRY TAVERAS MD [facility] [address] [place] [address] 1 10/05/2024 11:31:40 10/05/2024 13:00:14 Cellulitis of right elbow 6639261716 [id number] L03.113 [id number] With septic like around bursitis responding well to antibiotic s. Continue antibiotic s x 10 days, follow-up 2 weeks to evaluate possibilit y of returning to full use. [id number] GENE QUEZADAEDI CS [address] [place] [address] 1 10/21/2024 10:15:34 10/21/2024 10:42:59 Cellulitis of right elbow 7016944125 4661228 L03.113 85103319 Responded to oral antibiotic s. [id number] GENE QUEZADAEDI CS [address] [place] [address] 1 01/18/2025 12:55:55 01/18/2025 13:37:35 Pain of elbow region 97195070 M25.521 [id number] With history of cellulitis that responded well to antibiotic s. [id number] GENE QUEZADAEDI CS [facility] [place] [address] 1 01/23/2025 09:02:48 01/23/2025 09:20:59 Pain of elbow region 80705527 M25.521 [id number] With history of cellulitis that has responded well to antibiotic s. [id number] GENE QUEZADAEDI CS [address] [place] [address] 1 02/27/2025 10:48:27 02/27/2025 11:13:14 Pain of elbow region 70355408 M25.521 [id number] With history of cellulitis that has responded well to antibiotic s. He may have a partial tendon tear at the triceps tendon insertion. Health Concerns Section Related Observation LastModified by Organization Detai ls LastModified Time None Recorded Concern Status LastModified by Organization Details LastModified Time None Recorded Advance Directives Directive None Recorded Payers Insurance Date Sequence Insurance Name Policy Number Policy [place] Covered Member ID [place] Member ID Guarantor Name 09/27/2024 MONICA Liu 02/24/2025 1 [place] [id number] Chacha Liu [id number] Chacha Liu Notes Date Note Type Note Provider Name and Address Organization Details Recorded Time 10/05/2024 text/html Consult requested by: DiomedesPrimary Care Physician: Dr. Cristal Whelan Hand dominance: RightLocation: Right Elbow Pain level: Date of injury: 09/22/2024Duration: 13 days Recent Surgery: NoProcedure:Date of surgery:Duration: In office procedure? No Previous upper extremity surgery? NoProcedure:Approxim ate date of surgery:Surgeon (if known): Have you or any of your immediate family members been seen by our hand surgeons before? 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 Liu is here for same day MRI results of his rt elbow. He says that the swelling and redness have improved. He still intermittently experiences shooting pains in the elbow. He experiences pulling sensations when he fully extends or flexes the elbow. LANDRY TAVERAS MD [address] [place], [address], [facility] 10/05/2024 11:51:41 10/21/2024 text/html Patient arrives for follow-up on his right elbow cellulitis. He was given a prescription for Bactrim on 10/05/2024 for 10-day dose. He states that he is doing much better, only has pain if he bumps his elbow. Consult requested by:Primary Care Physician: Dr. Cristal Whelan Hand dominance: RightLocation: Right Elbow Pain level: Date of injury: 09/22/2024Duration: 4 weeks Recent Surgery: NoProcedure:Date of surgery:Duration: In office procedure? No Previous upper extremity surgery? NoProcedure:Approxim ate date of surgery:Surgeon (if known): Have you or any of your immediate family members been seen by our hand surgeons before? 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 Liu is here for recheck of rt elbow cellulitis. He was given Bactrim 2 weeks ago. He says that the elbow is still sore and slightly stiff. He also says that the elbow is red and warm to the touch. MERYL HARRIS PA-C [address] [place] [address], [address], [facility] 10/21/2024 10:58:30 01/18/2025 text/html Patient returns with recurrent swelling, redness, and pain at the right elbow olecranon. He was seen at the [facility] and started on antibiotics Thursday. He reports the pain is 7 out of 10. Denies fever or other injury. Consult requested by:Primary Care Physician: Dr. Cristal Whelan Hand dominance: RightLocation: Right Elbow Pain level: Date of injury: 01/16/2025Duration: 2 Days Recent Surgery: NoProcedure:Date of surgery:Duration: In office procedure? No Previous upper extremity surgery? NoProcedure:Approxim ate date of surgery:Surgeon (if known): Have you or any of your immediate family members been seen by our hand surgeons before? 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 Liu is here for recheck of rt elbow. He notes that he didn't have an injury but on Thursday he was at work and started to have pain. He notes that the bursa never went away but the redness/infection/pa in did. He notes that he went to [facility] and they placed him on Bactrim. He has been taking ibuprofen as well as tylenol to help with it. MERYL HARRIS PA-C [address] [place], [address], [facility] 01/18/2025 15:41:14 01/23/2025 text/html Patient reports that his elbow is doing really well at this point. He is still taking the Bactrim. He states there is 1 small area that if it is impacted its painful, otherwise much less swelling, much less pain. He is working with restrictions. Consult requested by:Primary Care Physician: Dr. Cristal Whelan Hand dominance: RightLocation: Right Elbow Pain level: 0 /10 Date of injury: 01/16/2025Duration: 7 Days Recent Surgery: NoProcedure:Date of surgery:Duration: In office procedure? No Previous upper extremity surgery? NoProcedure:Approxim ate date of surgery:Surgeon (if known): Have you or any of your immediate family members been seen by our hand surgeons before? 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 Liu presents to [...] to have pain then. MERYL HARRIS PA-C [address] [place], [address], [facility] 01/23/2025 16:37:52 02/27/2025 text/html Patient arrives for scheduled follow-up. He has been attending therapy and feels like he has made excellent progress. He has much less pain and has full range of motion of the elbow. Consult requested by:Primary Care Physician: Dr. Cristal Whelan Hand dominance: RightLocation: Right Elbow Pain level: 3 /10 at 1 pinpoint area of the elbow Date of injury: 01/16/2025Duration: 6 weeks Recent Surgery: NoProcedure:Date of surgery:Duration: In office procedure? No Previous upper extremity surgery? NoProcedure:Approxim ate date of surgery:Surgeon (if known): Have you or any of your immediate family members been seen by our hand surgeons before? 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 Liu presents to the office for a follow up of the right elbow. Pt states he finished the antibiotic. He reports intermittent soreness and stiffness in the elbow with overuse. MERYL HARRIS PA-C [address] [place], [address], [facility] 02/27/2025 13:00:24
== END 2025-03-03 23:59 | disposition home or self-care (01) ==
LOC: RT 09:19
PROVIDERS: PCP Family Medicine; Visit Provider Nurse Practitioner
DX: I49.1 Atrial premature depolarization (principal); I49.3 Ventricular premature depolarization; R55 Syncope and collapse
CPT/HCPCS: 93270

== ENCOUNTER 2025-03-23 07:54 | Outpatient (CLI) | payer BC, SELFPAY ==
--- OUTSIDE RECORDS SUMMARY | 2025-02-28 23:00 | XMS_ITS | Encounter Summary ---
Author Organization [facility] Address [address] [place], [place] [address] Phone [email or web address] Care Team Providers Care Business Architect Name Role Phone Jazmine Quintanilla Primary Care Provider [phone] Reason for Visit * Reason Comments Care Coordination Encounter Details Date Type Department Care Team (Latest Contact Info) Description 02/28/2025 11:00 PM EDT Clinical Support [facility] [place] [address] [facility] [address] [place] [address] Tete Mooney PA [address] [place] [address] Lightheaded (Primary Dx) Social History [...] on file 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 Oral hydration at [facility]. EDWIGE declined ALS. Stable at discharge and transported to the ER by his . RTC with release to RTW note. documented in this encounter Progress Notes * VINITA Valera - 02/28/2025 11:00 PM EDT Subjective Ana Liu Jr. is a 59 y.o. male. 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 Onset: ~10 minutes prior to arrival Symptoms: lh/d, fuzzy headed , syncopal episode Transported TM back to [facility] 1999 via Med 1 without stretcher. Notes: [...] , but agreed to further eval at [facility]. GL gave TM water. TM feels able [...] cranial nerve deficit. Gait: Gait normal. Comments: Transfer And Pumphouse Operator is good/= Psychiatric: Mood and Affect: Mood [...] (ABNORMAL) POCT glucose (02/28/2025 11:22 PM EDT) [facility] Signature Glucose, POC 325(A) 65 - [...] giddiness documented in this encounter Care Teams Business Architect Relationship Specialty Start Date End Date Jazmine Quintanilla [address] [place] [address] [phone] PCP - General 10/24/24 documented as of this encounter
--- NOTE | 2025-03-23 | CA_ITS ---
APPROVED REPORT Exam: Exercise Treadmill Technologist: Nancy Frost Stress Nurse: Tonie Castro Ht: 5 ft 7 in Wt: 172 lbs BSA: 1.90 m2 Rhythm: NSR Indications: R55, I10, E11.9 Medical History Medications: Jardiance, Lisinopril. Stress Test Details Test: Exercise stress testing was performed using a modified Eduard protocol. HR Resting HR: 76 bpm Max Heart Rate (APMHR): 161 bpm Max HR Achieved: 150 bpm Target HR (85% APMHR): 137 bpm % of APMHR: 93 Recovery HR: 94 bpm HR response to stress: Normal HR response to stress BP Resting BP: 128.0/80.0 mmHg Max BP: 164.0/98.0 mmHg Recovery BP: 157.0/83.0 mmHg BP response to stress: Normal blood pressure response to stress. ECG Resting ECG: NSR Stress EC.[address] depression, new T-wave changes Clinical Exercise duration: 7:49 min Highest Stage Achieved: III Exercise capacity: 10.1 METs Stress ECG Conclusion ST changes: 1.[address] depression, new T-wave changes CONCLUSION: ECG findings suggestive of possible ischemia at peak stress. Myoview images are reported separately. Electronically signed by : Esther Huang MD 03/29/2025 13:10:22
--- OUTSIDE RECORDS SUMMARY | 2025-03-23 07:56 | XMS_ITS | Encounter Summary ---
Author Organization [facility] Address [address] [place] [address] Phone [email or web address] Care Team Providers Care Straw Baler Name Role Phone Jazmine Quintanilla Primary Care Provider [phone] Encounter Details Date Type Department Care Team (Late st Contact Info) Description 03/02/[address] [place] [address] Tete Mooney PA [address] [place] [address] Social History Tobacco Use Types Packs/Day Years Used Date Smoking Tobacco: Never Smokeless Tobacco: Never Depression Answer Date Recorded PHQ Total Score 0 01/16/2025 Stress Answer Date Recorded Stress in your Life Not on file 04/13/2024 Dealing with Stress 3 04/13/2024 Sex and Gender Information Value Date Recorded Sex Assigned at Not on file 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 He states he did not go to the ER when his picked him up. TM states he did not feel well yesterday, so did not come in. TM states he is currently at the ER and they are talking about admitting him. No further syncope. He states something abnl with his heart possibly. He does not know all the details. TM states okay to contact his if he does not answer; as I asked if it would be okay for me to call and check on him later. I called TM back for f/u: TM states not admitted. (Eval done at [facility] ER- Dx with Syncope). Wearing a heart monitor. Found something in his lung- pulmonary nodule. Not sure if a clot. Cardiology and maybe a Zyglo Technician appt tomorrow. TM states told his heart may have re-booted. Confirmed no injury with LOC. Discussed [employer] and f/u HR and GL/AM. TM states ER mentioned WC Claim as it happened at work; TM advised to decide if he plans to do Occ claim vs personal but discussed work did not cause symptoms and he had no injury. documented in this encounter Plan of Treatment Not on file documented as of this encounter Visit Diagnoses Not on filedocumented in this encounter Care Teams Straw Baler Relationship Specialty Start Date End Date Jazmine Quintanilla [address] [place] [phone] PCP - General 10/24/24 documented as of this encounter
--- OUTSIDE RECORDS SUMMARY | 2025-03-23 07:56 | XMS_ITS | Continuity of Care Document ---
Author Organization [facility], ORTHOPEDICS [address] Address [address] [place] [address] Care Team Providers Care Office Machine Embossograph Operator Name Role Phone CRISTAL WHELAN Primary Care Provider [phone] ELANA SAGASTUME Deck Steward [phone] Assessment No assessment recorded. Plan of Treatment [...] By Organization Details Last Modified Time 01/23/2025 [id number] Finish out the antibiotics. Work restrictions centered [...] Flag Note LastModifiedBy Organization Detail LastModifiedTime 03/02/2003/02/2025 CT, angio gram, chest , w/o contr ast No observ ation record ed. [place] [address], [place], [address], 03/03/2025 13:13:36 03/02/20 25 03/02/2025 XR, chest No observ ation record ed. [address], [place], [address], 03/03/2025 13:13:19 03/03/2003/02/2025 cardi ac stres s test No observ ation record ed. [email or web address] [facility] (X-Ray) [address], [place], [address], 03/03/2025 13:12:15 Result Notes None recorded. Problems Name Problem SNOMED Code Status Onset Date Resolution Date Notes Provider Name and Address Organization Details Recorded Time Paresthesia of lower extremity 348040262 Active 2023 CRISTAL WHELAN, DO [address] [place], [address], [facility] 14:25:28 Type 2 diabetes mellitus 34534069 Active 2023 CRISTAL WHELAN DO [address] [place], [address], [facility] 12:18:44 Type 2 diabetes mellitus without complication 859461850 Active 2023 CRISTAL WHELAN DO [address] [place], [address], [facility] 11:28:19 Uncontrolled type 2 diabetes mellitus 600277663 Active 2023 CRISTAL WHELAN DO [address] [place], [address], [facility] 4 11:30:10 Fatigue 29181751 Active 2024 CRISTAL WHELAN DO [address] [place], [address], [facility] 13:44:35 Erectile dysfunction 707114672 Active 2024 CRISTAL WHELAN DO [address] [place], [address], [facility] 13:52:02 Problem Notes None recorded. Procedures Surgical History Date Name Laterality Status Provider Name and Address Organization Details Recorded Time procedure on nasal septum completed Maryadam Borja [facility] 02/13/2023 13:14:55 Imaging Results None [...] Updated DateTime 01/23/2025 170.18 cm 26.2 kg/m2 46723.93 g Zina Mariano [facility] 01/23/2025 09:05:39 Social History Question Answer Notes LastModified by Organizat ion Details LastModified Time Tobacco Smoking Status Never Smoker Mary Huong bahena, [facility] 02/13/2023 13:13:43 What Was The [...] ICD10 Code Diagnosis IMO Codes Diagnosis Note [id number] GENE QUEZADAI CS [address] [place] [address] 01/18/2025 12:55:55 01/18/2025 13:37:35 Pain of elbow region 28661836 M25.521 524389 With history of cellulitis that responded well to antibiotic s. 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 Yes Patient arrived in: N/A taken off N/A Emergency Technician Strength: right: left: Mr. Liu presents to [...] to have pain then. MERYL HARRIS PA-C [facility] [place], [address], [place] [facility] 01/23/2025 16:37:52
--- OUTSIDE RECORDS SUMMARY | 2025-03-23 07:56 | XMS_ITS | Continuity of Care Document ---
Author Organization [facility], ORTHOPEDICS [address] Address [address] [place] [address] Care Team Providers Care Cooling Tower Operator Name Role Phone CRISTAL WHELAN Primary Care Provider TANIKAELANA Equipment Operator Intermodal Yard Assessment No assessment recorded. Plan of Treatment [...] By Organization Details Last Modified Time 02/27/2025 [id number] He is return to work with no [...] contr ast No observ ation record ed. [address], [place], [address], 03/03/2025 13:13:36 03/02/20 25 03/02/2025 XR, chest No observ ation record ed. [address], [place], [address], 03/03/2025 13:13:19 03/03/2003/02/2025 cardi ac stres s test No observ ation record ed. [email or web address] [facility] (X-Ray) [address], [place], [address], 03/03/2025 13:12:15 Result Notes None recorded. Problems Name Problem SNOMED Code Status Onset Date Resolution Date Notes Provider Name and Address Organization Details Recorded Time Paresthesia of lower extremity 057737566 Active 2023 CRISTAL WHELAN, DO [address] [place], [address], [facility] 14:25:28 Type 2 diabetes mellitus 12380633 Active 2023 CRISTAL WHELAN DO [address] [place], [address], [facility] 12:18:44 Type 2 diabetes mellitus without complication 897751114 Active 2023 CRISTAL WHELAN DO [address] [place], [address], [facility] 11:28:19 Uncontrolled type 2 diabetes mellitus 804015732 Active 2023 CRISTAL WHELAN DO [address] [place], [address], [facility] 4 11:30:10 Fatigue 71501425 Active 2024 CRISTAL WHELAN DO [address] [place], [address], [facility] 5 13:44:35 Erectile dysfunction 744215653 Active 2024 CRISTAL WHELAN DO [address] [place], [address], [facility] 5 13:52:02 Problem Notes None recorded. Procedures Surgical History Date Name Laterality Status Provider Name and Address Organization Details Recorded Time procedure on nasal septum completed Maryadam Borja [facility] 02/13/2023 13:14:55 [...] Updated DateTime 02/27/2025 170.18 cm 26.2 kg/m2 85947.93 g Jeffrey Cottrell [facility] 02/27/2025 10:57:30 Social History Question Answer Notes LastModified by Organizat ion Details LastModified Time Tobacco Smoking Status Never Smoker Mary Huong bahena, [facility] 02/13/2023 13:13:43 What Was The [...] ICD10 Code Diagnosis IMO Codes Diagnosis Note [id number] MERYL HARRIS PA-C ORTH[facility] [address] [place] [address] 02/27/2025 10:48:27 02/27/2025 11:13:14 Pain of elbow region 31881943 M25.521 497222 With history of cellulitis that has responded [...] 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 Liu presents to the office for a follow up of the right elbow. Pt states he finished the antibiotic. He reports intermittent soreness and stiffness in the elbow with overuse. MERYL HARRIS PA-C [address] [place], [address], [facility] 02/27/2025 13:00:24
--- OUTSIDE RECORDS SUMMARY | 2025-03-23 07:56 | XMS_ITS | Encounter Summary ---
Author Organization [facility] Address [address] [place] [address] Phone [email or web address] Care Team Providers Care High Pressure Cleaner Name Role Phone Jazmine Quintanilla Primary Care Provider [phone] Encounter Details Date Type Department Care Team (Late st Contact Info) Description 02/15/2025 Telephone XL Video Line Side Nursing Power Train [address] [place] [address] Mariana Hawthorne, RN [address] [place] [address] Social History Tobacco Use Types Packs/Day Years Used Date Smoking Tobacco: Never Smokeless Tobacco: Never Depression Answer Date Recorded PHQ Total Score 0 01/16/2025 Stress Answer Date Recorded Stress in your Life Not on file 04/13/2024 Dealing with Stress 3 04/13/2024 Sex and Gender Information Value Date Recorded Sex Assigned at Not on file 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 He is using ibuprofen but no antibiotics for a few weeks. He has been seen by S provider and on 1:1 restricted duty. He has a follow up with Specialist office at [facility] on 02/27/25. He has called the office of Nichelle and asked for earlier appt but the Specialist and kathy is PA are on vacation for a few weeks. [...] on filedocumented in this encounter Care Teams High Pressure Cleaner Relationship Specialty Start Date End Date Jazmine Quintanilla [address] [place] [id number] PCP - General 10/24/24 documented as of this encounter
--- OUTSIDE RECORDS SUMMARY | 2025-03-23 07:56 | XMS_ITS | Patient Health Record ---
Author Organization [facility] Physician Jet young Billing Info Address [address] [place] [address] [place] [address] Support Name Relationship Address Phone NoeKatherine Emergency Contact [address] [place] [address] Ana Liu Guarantor Unknown [phone] Reason For Referral No Information Immunizations Vaccine Route Administration Date Status Comme nts zFLU 4V (AFLURIA QUAD), 3+yr s, NO PRES - ALL PAYORS Unknown 12/05/2019 Refused Social History Tobacco Status: Question Answer Notes Patient is a non tobacco user Plan Of Treatment Pending Test Test Name Order Date GLUCOSE FINGERSTICK, BLOOD, GLUCOSE SHUBHAM TORING ([id number]) 12/05/2019 URINALYSIS, DIP STICK/TABLET REAGENT; AU TOMATED, W/O MICROSCOPY ([id number]) 12/05/2019 Comprehensive Metabolic Panel (96746) 12/05/2019 BLOOD COUNT; COMPLETE CBC, A UTOMATED (HGB, HCT, RBC, WBC, & PLATELET) & AUTOMATED DIFFERENTIAL WBC ([id number]) CBC 12/05/2019 Insurance Providers Payer Name Payer Address Payer Phone Subscriber Number Group Number Insured Name Patient Relationship to Insured Coverage Start Date Coverage End Date [facility] POS CHOICE PLUS [address] [facility] [place] [place] [id number] Ana Liu Self - patient is the insured 0 0 Medical (General) History Medical History History ICD Code Borderline Diabetes Surgical History Surgery Date(Month/Year) deviated septum repair 11/24/2019
--- OUTSIDE RECORDS SUMMARY | 2025-03-23 07:56 | XMS_ITS | Encounter Summary ---
Author Organization [facility] Address [address] [place], [place] [address] Phone [email or web address] Care Team Providers Care Geological E Logger Name Role Phone Jazmine Quintanilla Primary Care Provider [phone] Encounter Details Date Type Department Care Team (Late st Contact Info) Description 03/01/[address] [place] [address] Vita Lopez RN [address] [place] [address] Social History Tobacco Use Types Packs/Day Years Used Date Smoking Tobacco: Never Smokeless Tobacco: Never Depression Answer Date Recorded PHQ Total Score 0 01/16/2025 Stress Answer Date Recorded Stress in your Life Not on file 04/13/2024 Dealing with Stress 3 04/13/2024 Sex and Gender Information Value Date Recorded Sex Assigned at Not on file 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
--- OUTSIDE RECORDS SUMMARY | 2025-03-23 07:57 | XMS_ITS | Data Portability ---
Author Organization KAREN GILDA Putnam [facility] Address [address] [place] [address] Care Team Providers Care Solder Sprayer Name Role Phone GODFREY WHELANE Primary Care Provider TANIKAHALLEYELANA Accounts Collector [phone] Assessment No assessment recorded. Plan of Treatment Reminders Order Date Submit Date Provider Last Modified By Organization Details Last Modified Time Details Appointments None recorded. Lab None recorded. Referral None recorded. Procedures None recorded. Surgeries None recorded. Imaging None recorded. Medication Orders Bactrim DS 800 mg-160 mg tablet 025 025 [facility] 591, [address], [address], 12:01:49 Patient TargetsNo targets recorded. Patient Instructions Encounter Date Encounter Id Patient Instructions Last Modified By Organization Details Last Modified Time 10/21/2024 [id number] He can use his hand as tolerated. [...] duty. Follow-up as needed. He is at [facility] with no PPI. jadiel Not available 10/21/2024 10:58:13 01/18/2025 [id number] Since they have already started him on [...] provided. jadiel Not available 01/18/2025 15:40:45 01/23/2025 [id number] Finish out the antibiotics. Work restrictions centered around protecting the olecranon point from impact to avoid developing bursal swelling. Follow-up in 4 weeks for what is hoped a final visit. If anything worsens before the scheduled follow-up he is instructed to contact us immediately for an earlier appointment. jadiel Not available 01/23/2025 16:37:34 02/27/2025 [id number] He is return to work with no [...] Abnormal Flag Note LastModifiedBy Organization Detail LastModifiedTime 03/10/2003/10/2025 COLOG UARD cologuard result Cancel led - Order d not applic able Not Available [facility] [address], [place], [address], 03/10/2025 00:47:04 09/17/1909/16/2024 TESTO STERO NE, TOTAL testosterone , total 334 NG/dL 193-74 0 normal Refer ence range is for age 50 years and over. Not Available [facility] [address] [place], [address], 09/16/2024 19:08:30 09/17/19 25 09/16/2024 TSH TSH 1.530 u[IU] /mL 0.270- 4.200 normal Not Available [facility] [address] [place], [address], 09/16/2024 19:08:31 09/17/19 25 09/16/2024 B12/F OLIC ACID PANEL folic acid >20.0 NG/mL 4.6-34 .8 normal Not Available [facility] [address] [place] [address], [address], 09/16/2024 19:12:30 09/17/19 25 09/16/2024 B12/F OLIC ACID PANEL vitamin B12 629 pg/mL 232-12 45 normal Not Available [facility] [address] [place] [address], [address], 09/16/2024 19:12:30 09/17/19 25 09/16/2024 COMPL ETE BLOOD COUNT white blood cells 5.2 10*3/ uL 3.8-10 .8 normal Not Available [facility] [address] [place] [address], [address], 09/16/2024 19:13:11 09/17/19 25 09/16/2024 COMPL ETE BLOOD COUNT red blood cells 5.89 10*6/ uL 4.20-5 .80 high Not Available [facility] [address] [place] [address], [address], 09/16/2024 19:13:11 09/17/1909/16/2024 COMPL ETE BLOOD COUNT hemoglobin 17.3 g/dL 14.0-1 8.0 normal Not Available [facility] [address] [place] [address], [address], 09/16/2024 19:13:11 09/17/1909/16/2024 COMPL ETE BLOOD COUNT hematocrit 51.1 % 40.0-5 2.0 normal Not Available [facility] [address] [place] [address], [address], 09/16/2024 19:13:11 09/17/19 25 09/16/2024 COMPL ETE BLOOD COUNT MCV 87 fL 80-100 normal Not Available [facility] [address] [place] [address], [address], 09/16/2024 19:13:11 09/17/19 25 09/16/2024 COMPL ETE BLOOD COUNT MCH 29 pg 26-35 normal Not Available [facility] [address] [place] [address], [address], 09/16/2024 19:13:11 09/17/19 25 09/16/2024 COMPL ETE BLOOD COUNT MCHC 34 g/dL 32-36 normal Not Available [facility] [address] [place] [address], [address], 09/16/2024 19:13:11 09/17/19 25 09/16/2024 COMPL ETE BLOOD COUNT RDW 13.9 % 11.0-1 5.0 normal Not Available [facility] [address] [place] [address], [address], 09/16/2024 19:13:11 09/17/19 25 09/16/2024 COMPL ETE BLOOD COUNT MPV 8.6 fL 6.2-10 .5 normal Not Available [facility] [address] [place] [address], [address], 09/16/2024 19:13:11 09/17/19 25 09/16/2024 COMPL ETE BLOOD COUNT platelet count 200 10*3/ uL 150-40 0 normal Not Available [facility] [address] [place] [address], [address], 09/16/2024 19:13:11 09/17/19 25 09/16/2024 COMPL ETE BLOOD COUNT neutrophil,a bsolute 3.3 10*3/ uL 1.6-8. 4 normal Not Available [facility] [address] [place] [address], [address], 09/16/2024 19:13:11 09/17/19 25 09/16/2024 COMPL ETE BLOOD COUNT lymphocyte,a bsolute 1.1 10*3/ uL 0.4-5. 1 normal Not Available [facility] [address] [place] [address], [address], 09/16/2024 19:13:11 09/17/19 25 09/16/2024 COMPL ETE BLOOD COUNT monocyte,abs olute 0.5 10*3/ uL 0.0-1. 2 normal Not Available [facility] [address] [place] [address], [address], 09/16/2024 19:13:11 09/17/19 25 09/16/2024 COMPL ETE BLOOD COUNT eosinophil,a bsolute 0.2 10*3/ uL 0.0-0. 8 normal Not Available [facility] [address] [place] [address], [address], 09/16/2024 19:13:11 09/17/19 25 09/16/2024 COMPL ETE BLOOD COUNT basophil,abs olute 0.0 10*3/ uL 0.0-0. 3 normal Not Available [facility] [address] [place] [address], [address], 09/16/2024 19:13:11 09/17/19 25 09/16/2024 COMPL ETE BLOOD COUNT % neutrophils 63.3 % 42.0-7 8.0 normal Not Available [facility] [address] [place] [address], [address], 09/16/2024 19:13:11 09/17/19 25 09/16/2024 COMPL ETE BLOOD COUNT % lymphocytes 21.9 % 11.0-4 7.0 normal Not Available [facility] [address] [place] [address], [address], 09/16/2024 19:13:11 09/17/19 25 09/16/2024 COMPL ETE BLOOD COUNT % monocytes 9.8 % 0.0-11 .0 normal Not Available [facility] [address] [place] [address], [address], 09/16/2024 19:13:11 09/17/19 25 09/16/2024 COMPL ETE BLOOD COUNT % eosinophils 4.2 % 0.0-7. 0 normal Not Available [facility] [address] [place] [address], [address], 09/16/2024 19:13:11 09/17/19 25 09/16/2024 COMPL ETE BLOOD COUNT % basophils 0.8 % 0.0-3. 0 normal Not Available [facility] [address] [place] [address], [address], 09/16/2024 19:13:11 09/17/19 25 09/16/2024 COMPL ETE BLOOD COUNT nucleated red cells 0.1 % 0.0-0. 9 normal Not Available [facility] [address] [place] [address], [address], 09/16/2024 19:13:11 09/17/19 25 09/16/2024 COMPL ETE BLOOD COUNT nucleated RBCs, absolute 0.00 10*3/ uL not estab. normal Not Available [facility] [address] [place] [address], [address], 09/16/2024 19:13:11 09/17/19 25 09/16/2024 COMP. METAB OLIC PANEL glucose 154 mg/dL 74-100 high Not Available [facility] [address] [place] [address], [address], 09/16/2024 19:26:38 09/17/19 25 09/16/2024 COMP. METAB OLIC PANEL blood urea nitrogen 19 mg/dL 6-20 normal Not Available [facility] [address] [place] [address], [address], 09/16/2024 19:26:38 09/17/19 25 09/16/2024 COMP. METAB OLIC PANEL creatinine 0.96 mg/dL 0.70-1 .20 normal Not Available [facility] [address] [place] [address], [address], 09/16/2024 19:26:38 09/17/19 25 09/16/2024 COMP. METAB OLIC PANEL BUN/creatini ne ratio 20 (calc ) 10-20 normal Not Available [facility] [address] [place] [address], [address], 09/16/2024 19:26:38 09/17/19 25 09/16/2024 COMP. METAB OLIC PANEL sodium 136 mmol/ L 136-14 5 normal Not Available [facility] [address] [place] [address], [address], 09/16/2024 19:26:38 09/17/19 25 09/16/2024 COMP. METAB OLIC PANEL potassium 4.4 mmol/ L 3.4-5. 0 normal Not Available [facility] [address] [place] [address], [address], 09/16/2024 19:26:38 09/17/19 25 09/16/2024 COMP. METAB OLIC PANEL chloride 98 mmol/ L 98-107 normal Not Available [facility] [address] [place] [address], [address], 09/16/2024 19:26:38 09/17/19 25 09/16/2024 COMP. METAB OLIC PANEL carbon dioxide 26 mmol/ L 22-31 normal Not Available [facility] [address] [place] [address], [address], 09/16/2024 19:26:38 09/17/19 25 09/16/2024 COMP. METAB OLIC PANEL anion gap 12 (calc ) 7-25 normal Not Available [facility] [address] [place] [address], [address], 09/16/2024 19:26:38 09/17/19 25 09/16/2024 COMP. METAB OLIC PANEL calcium 9.9 mg/dL 8.6-10 .2 normal Not Available [facility] [address] [place] [address], [address], 09/16/2024 19:26:38 09/17/19 25 09/16/2024 COMP. METAB OLIC PANEL total protein 8.1 g/dL 6.4-8. 3 normal Not Available [facility] [address] [place] [address], [address], 09/16/2024 19:26:38 09/17/19 25 09/16/2024 COMP. METAB OLIC PANEL albumin 4.7 g/dL 3.5-5. 2 normal Not Available [facility] [address] [place] [address], [address], 09/16/2024 19:26:38 09/17/19 25 09/16/2024 COMP. METAB OLIC PANEL globulin 3.4 1.5-4. 5 normal Not Available [facility] [address] [place] [address], [address], 09/16/2024 19:26:38 09/17/19 25 09/16/2024 COMP. METAB OLIC PANEL albumin/glob ulin ratio 1.4 (calc ) 1.1-2. 5 normal Not Available [facility] [address] [place] [address], [address], 09/16/2024 19:26:38 09/17/19 25 09/16/2024 COMP. METAB OLIC PANEL bilirubin, total 0.7 mg/dL 0.1-1. 2 normal Not Available [facility] [address] [place] [address], [address], 09/16/2024 19:26:38 09/17/19 25 09/16/2024 COMP. METAB OLIC PANEL alkaline phosphatase 79 U/L 40-129 normal NOTE: NEW DO L RANGE FOR PEDIA TRIC PATIE NTS (<19 YEARS ). Not Available [facility] [address] [place] [address], [address], 09/16/2024 19:26:38 09/17/19 25 09/16/2024 COMP. METAB OLIC PANEL AST 21 U/L 0-40 normal Not Available [facility] [address] [place] [address], [place], [address], 09/16/2024 19:26:38 09/17/19 25 09/16/2024 COMP. METAB OLIC PANEL ALT 28 U/L 0-41 normal Not Available [facility] [address] [place] [address], [address], 09/16/2024 19:26:38 09/17/19 25 09/16/2024 COMP. METAB OLIC PANEL GFR 91 >= 60 normal NOT E New calcu latio n for GFR (CKD- EPI 2020) is formu lated witho ut race adjus tment facto rs at the recom menda tion of the Narciso Gaytan y Uriah de los santos and Haley yuen Socie ty of Nephr ology . This calcu latio n has not been valid ated in pregn ant women . For pedia tric patie nts refer to https ://annika lopez.tommie rg/pr halleess ional s/KDO QI/gf r_cal culat orPed Not Available [facility] [address] [place] [address], [address], 09/16/2024 19:26:38 09/17/19 25 09/16/2024 GLYCO HEMOG LOBIN A1C glyco HGB A1C 8.9 % 0.0-5. 6 high Not Available [facility] [address] [place] [address], [address], 09/16/2024 19:46:31 09/17/1909/16/2024 GLYCO HEMOG LOBIN A1C estimated avg. glucose 209 mg/dL _(erica c) normal A1c value s betwe en 5.7% to 6.4% indic ate predi abete s. Resul ts 6.5% or great er is diagn ostic of diabe yaquelin. Haley can Diabe yaquelin Assoc iatio n (diab etes. org) Not Available [facility] [address] [place] [address], [address], 09/16/2024 19:46:31 09/24/1909/23/2024 XR, elbow , 3 or more view No observ ation record ed. [email or web address] [facility] [address], [place], [address], 09/27/2024 11:58:51 10/06/19 25 10/05/2024 MRI, elbow , w/o contr ast [facility] [address] [place] [address] [place] [address] Patien t Name: RAZIA LIU Patien t : 966 Patien t 46 Orderi ng Provid er: ENRICO [...] boston MD on 025 11:34 AM jadiel [facility] [address] [place] [address], [address], 10/06/2024 10:58:09 03/02/20 25 03/02/2025 CT, angio gram, chest , w/o contr ast No observ ation record ed. [address] [address], [place], [address], 03/03/2025 13:13:36 03/02/20 25 03/02/2025 XR, chest No observ ation record ed. [address], [place], [address], 03/03/2025 13:13:19 03/03/2003/02/2025 cardi ac stres s test No observ ation record ed. [address] (X-Ray) [address] [place] [address] [address], [place], [address], 03/03/2025 13:12:15 Result Notes Documentation Provider Name and Address Organization Details Recorded Time Mri, Elbow, W/o Contrast : [address] [address] Patient Name: CHACHA LIU Patient : 1965 [...] the distal triceps tendon. Interpreted By: Tomasz Miramontse MD L HARRIS PA-C [address] [place] [address], [address], [facility] 10/06/2024 10:58:09 Problems Name Problem SNOMED Code Status Onset Date Resolution Date Notes Provider Name and Address Organization Details Recorded Time Paresthesia of lower extremity 688758993 Active 2023 CRISTAL WHELAN DO [address] [place] [address], [address], [facility] 4 14:25:28 Type 2 diabetes mellitus 26817086 Active 2023 CRISTAL WHELAN, DO [address] [place] [address], [address], [facility] 4 12:18:44 Type 2 diabetes mellitus without complication 931517757 Active 2023 CRISTAL WHELAN, DO [address] [place] [address], [address], [facility] 4 11:28:19 Uncontrolled type 2 diabetes mellitus 601056770 Active 2023 CRISTAL WHELAN [place] [facility] [place], [address], [facility] 4 11:30:10 Fatigue 87212191 Active 2024 CRISTAL WHELAN DO [address] [place] [address], [address], [facility] 5 13:44:35 Erectile dysfunction 936790100 Active 2024 CRISTAL WHELAN DO [address] [place] [address], [address], [facility] 13:52:02 Problem Notes None recorded. Procedures Surgical History Date Name Laterality Status Provider Name and Address Organization Details Recorded Time procedure on nasal septum completed Mary Borja [facility] 02/13/2023 13:14:55 Imaging Results None [...] Updated DateTime 10/05/2024 170.18 cm 26.2 kg/m2 37630.93 g 3 Young Rosssey [facility] 10/05/2024 11:43:07 Date Recorded Body height Body mass index (BMI) Body weight Pain severity - 0-10 verbal numeric rating [Score] - Reported Provider Name and Address Organization Details Last Updated DateTime 10/21/2024 170.18 cm 26.2 kg/m2 93893.93 g 2 Young Reynoso [facility] 10/21/2024 10:26:29 Date Recorded Body height Body weight Provider Name and Address Organization Details Last Updated DateTime 01/18/2025 170.18 cm 14701.93 g [facility] 13:23:15 Date Recorded Body height Body mass index (BMI) Body weight Provider Name and Address Organization Details Last Updated DateTime 01/23/2025 170.18 cm 26.2 kg/m2 99222.93 g Zina [facility] 01/23/2025 09:05:39 Date Recorded Body height Body mass index (BMI) Body weight Provider Name and Address Organization Details Last Updated DateTime 02/27/2025 170.18 cm 26.2 kg/m2 51449.93 g Jeffrey Cottrell [facility] 02/27/2025 10:57:30 Social History Question Answer Notes LastModified by Organizat ion Details LastModified Time Tobacco Smoking Status Never [facility]oker [facility] 02/13/2023 13:13:43 What Was The [...] ICD10 Code Diagnosis IMO Codes Diagnosis Note [id number] CRISTAL WHELAN, DO [facility] [address] [facility] [place] [address] 02/13/2023 12:57:54 02/13/2023 14:10:46 Adult health examination 917144271 Z00.00 -ETOH use - recommend no more [...] patient Body mass index 25-29 - overweight 138129912 Z68.27 work on steady and sustained weight loss to mitigate the developmen t of chronic conditions related to unhealthy lifestyles Hypertensive disorder 38 831140 I10 BP seems to be controlled at this timecontin ue with antihypert ensive as prescribed watch added salt in dietincrea se physical activity as toleratedw ill continue to monitor Type 2 wolf betes mellitus 29016818 E11.9 Update hemoglobin L2vRfdky labs as ordered belowFollo w low glycemic dietWill refill metformin Screening for malignant neoplasm of colon 942247633 Z12.11 Screening for malignant neoplasm of prostate 344263873 Z12.5 [id number] CRISTAL WHELAN, DO [facility] [address] [facility] [place] [address] 03/09/2024 13:49:32 03/09/2024 14:45:47 Hypertensive disorder 59835404 I10 BP seems to be controlled at this timecontin ue with antihypert ensive as prescribed watch added salt in dietincrea se physical activity as toleratedw ill continue to monitor Type 2 wolf betes mellitus 75027996 E11.9 Update hemoglobin U1yIwpaj labs as ordered belowSuspe ct metformin may be a factor in issue with loose stools. Did discuss switching from metformin to an alternativ e. Will follow-up with patient once labs are reviewed Paresthesi a of lower extremity 764628568 R20.2 Screening for malignant neoplasm of colon 094312168 Z12.11 [id number] CRISTAL WHELAN, DO [facility] [place] [address] [facility] [place] [address] 03/16/2024 11:09:27 03/16/2024 11:46:00 Uncontrolled type 2 diabetes mellitus 606002578 E11.65 continue with jardiance as prescribed f/u in office in about 2-3 months and update V0Bcttlot low glycemic diet Body mass index 25-29 - overweight 756430085 Z68.27 work on steady and sustained weight loss to mitigate the developmen t of chronic conditions related to unhealthy lifestyles [id number] CRISTAL WHELAN, DO [facility] [address] [place] [address] 09/16/2024 13:10:31 09/16/2024 16:23:27 Fatigue 04460340 R53.83 update labs to r/o deficienci es, anemias, thyroid dysfunctio nwill f/u with patient on results and plan of management patient will f/u with provider on FMLA paperwork Uncontroll ed type 2 diabetes mellitus 730874718 E11.65 considered this either being hypo or hyperglyce vincent,patien t encouraged to monitor his BS frequently , update A1C Erectile dysfunction 860 044921 F52.21 c/o fatigue and ED, check testostero ne level, will also give trial of sildenafil [id number] LANDRY TAVERAS MD [facility] [address] [address] 09/26/2024 14:02:26 09/26/2024 14:42:09 Cellulitis of right elbow 4359921532 [id number] L03.113 [id number] No current hard signs of deep infection, p.o. antibiotic s x 2 days then follow-up and consider MRI- Oral antibiotic s for 2 days. - Meloxicam for inflammati on. - Apply ice for swelling relief. - Avoid use of sling. - Follow-up scheduled. - Consider MRI if no improvemen t. [id number] MERYL HARRIS PA-C [facility] [address] [place] [address] 6 09/28/2024 10:56:29 09/28/2024 11:38:26 Cellulitis of right elbow 4033220245 9494498 L03.113 [id number] Still no obvious abscess. [id number] LANDRY TAVERAS MD ORTHOP[facility]I CS [address] [place] [address] 1 10/05/2024 11:31:40 10/05/2024 13:00:14 Cellulitis of right elbow 9024360026 8856808 L03.113 [id number] With septic like around bursitis responding well to antibiotic s. Continue antibiotic s x 10 days, follow-up 2 weeks to evaluate possibilit y of returning to full use. [id number] GENE QUEZADAEDI CS [address] [place] [address] 1 10/21/2024 10:15:34 10/21/2024 10:42:59 Cellulitis of right elbow 0111132439 9414618 L03.113 [id number] Responded to oral antibiotic s. [id number] GENE QUEZADAEDI CS [facility] [place] [address] 1 01/18/2025 12:55:55 01/18/2025 13:37:35 Pain of elbow region 53946698 M25.521 [id number] With history of cellulitis that responded well to antibiotic s. [id number] GENE QUEZADAI CS [address] [place] [address] 1 01/23/2025 09:02:48 01/23/2025 09:20:59 Pain of elbow region 67491606 M25.521 [id number] With history of cellulitis that has responded well to antibiotic s. [id number] MERYL HARRIS PA-C ORTH[facility]EDI [address] [place] [address] 02/27/2025 10:48:27 02/27/2025 11:13:14 Pain of elbow region 32865798 M25.521 [id number] With history of cellulitis that has responded [...] Guarantor Name 09/27/2024 MONICA Liu 02/24/2025 1 [facility] ([facility] [id number] A Chacha Liu [id number] Chacha Liu Notes Date Note Type Note Provider Name and Address Organization Details Recorded Time 10/05/2024 text/html Consult requested by: DiomedesPrimary Care Physician: Dr. Cristal Whelan Hand dominance: RightLocation: Right Elbow Pain level: 3 /10 Date of injury: 09/22/2024Duration: 13 days Recent Surgery: NoProcedure:Date of surgery:Duration: In office procedure? No Previous upper extremity surgery? NoProcedure:Approxim ate date of surgery:Surgeon (if known): Have you or any of your immediate family members been seen by our hand surgeons before? 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 Liu is here for same day MRI results of his rt elbow. He says that the swelling and redness have improved. He still intermittently experiences shooting pains in the elbow. He experiences pulling sensations when he fully extends or flexes the elbow. 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 Liu is here for recheck of rt elbow cellulitis. He was given Bactrim 2 weeks ago. He says that the elbow is still sore and slightly stiff. He also says that the elbow is red and warm to the touch. 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 Liu is here for recheck of rt elbow. He notes that he didn't have an injury but on Thursday he was at work and started to have pain. He notes that the bursa never went away but the redness/infection/pa in did. He notes that he went to [facility] and they placed him on Bactrim. He has been taking ibuprofen as well as tylenol to help with it. 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 Liu presents to [...] to have pain then. 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 Liu presents to the office for a follow up of the right elbow. Pt states he finished the antibiotic. He reports intermittent soreness and stiffness in the elbow with overuse. MERYL HARRIS PA-C [address] [place], [address], [facility] 02/27/2025 13:00:24
--- OUTSIDE RECORDS SUMMARY | 2025-03-23 07:57 | XMS_ITS | Clinical Summary ---
Author Organization [facility] Address [address] [place] [address] Phone [email or web address] Care Team Providers Care Clin Nurse Name Role Phone Jazmine Quintanilla Primary Care Provider [phone] Allergies No known active allergies Medications lisinopril [...] Encounters Date Type Department Care Team Description 03/02/2025 [facility] [place] [address] [place] [address] Tete Mooney PA 03/01/2025 Telephone [facility] [address] [facility] [address] [place] [address] Vita Lopez, RADHA 02/28/2025 11:00 PM EDT Clinical Support [facility] [address] [facility] [address] [place] [address] Tete Mooney PA Lightheaded (Primary Dx) 02/15/2025 Telephone [employer] [facility] Power Train [address] [place] [address] Mariana Hawthorne RN from Last 3 Months Social History Tobacco [...] on file 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 Gender Identity Not on file Sexual Orientation [...] 09/26/2024 11:30 AM EDT Plan of Treatment Health Maintenance Due Date Last Done Comments [...] of 3 - 19+ 3-dose series) 1984 Pneumococcal: 50+ Years (1 o f 2 - PCV) 1984 Tetanus Diphtheria and Pertu ssis Immunization (1 - Tdap) 1984 Zoster Immunization (1 of 2) 08/24/2015 Annual Preventive Exam 05/16/2023 05/16/2022 Diabetic Retinal Eye Exam 09/30/2024 09/30/2022 Covid-19 Immunization (1 - 2 ) 02/06/2025 Influenza Immunization (#1) 2025 HIB Immunization Aged [...] Lightheaded from Last 3 Months Results * ECG 12 lead (03/10/2025 10:20 [...] Final Result from Last 3 Months Insurance RADHA IN [place] 5 Care Teams Clin Nurse Relationship Specialty Start Date End Date Jazmine Quintanilla [address] [place] [address] PCP - General 10/24/24
--- NOTE | 2025-03-23 08:00 | NM_ITS ---
APPROVED REPORT Exam: Nuclear Stress Test Indication: cp..soa Patient Location: Outpatient Stress Tech: Nancy Fan DE Tech:HEATHER Ku RT(R)(N) Ht: 5 ft 7 in Wt: 175 lbs HR: 74 bpm BP: 128/80 mmHg BSA: 1.91 m2 TID: 1.08 BMI: 27.4 History: cp..soa Procedure: Patient exercised on Eduard protocol 7:49 minutes and sec, resting heart rate 74 bpm, resting blood pressure 128/80 mmHg, with exercise maximum heart rate achived was 153 bpm which is 95 % of the maximum predicted heart rate and blood pressure was 164/98 mmHg. Test was stopped due to fatigue. Patient denied any complaint of chest pain. Patient has exercise capacity, achieved 10.1 METs of workload on treadmill, the blood pressure response to exercise was . Cardiac Stress and Resting SPECT Images: Cardiac Stress and Resting SPECT images were obtained using technetium 99m Myoview 32.9 mCi stress and 10.51 mCi at rest. Resting and stress imaging in supine and prone positions demonstrated a medium sized, moderate, partially reversible perfusion defect in the anterior LV wall. Gated imaging demonstrates mild reduction in global LV systolic function. LVEF is calculated at 47%. Conclusion: Medium sized, moderate, partially reversible perfusion defect in the anterior LV wall. Findings are suggestive of partial reversible ischemia. Gated imaging demonstrates mild reduction in global LV systolic function. LVEF is calculated at 47%. Correlation with new or recent TTE is suggested. Electronically signed by : Esther Huang MD 03/28/2025 13:18:27
[2025-03-23] MEDS: ISOTOPE MYOVIEW (PER STUDY) 1 DOSE IV (10:06)
[2025-03-23] MEDS: SODIUM CHLORIDE 0.9% 10ML SYR (RAD ONLY) 10 ML IV ×2 (10:06)
--- NOTE | 2025-03-23 10:30 | CA_ITS ---
APPROVED REPORT EXAM: Comprehensive 2D, Doppler, and color-flow Echocardiogram Base Wad Operator Adjuster: Genevieve Falk RDCS Ht: 5 ft 7 in Wt: 172lbs BSA: 1.90 BP: 135/82 mmHg Indications: SYNCOPE M-Mode Dimensions RVDd 1.44 cm (0.9-2.6) LA Diam 3.23 cm (1.9-4.0) LVDd 4.42 cm (3.5-5.7) LVDs 3.28 cm (3.5-5.7) IVSd 0.49 cm (0.6-1.1) PWd 0.58 cm (0.6-1.1) EF (Teich) 50.90% FS 25.80% EDV (Teich) 88.60 mL TAPSE 1.52 (<1.7) ESV (Teich) 43.50 mL LV Diastology E Decel Time 227 (160-240 msec) E/A Ratio 1.3 Mitral Valve MV E Max Los. 62.0 (40-130 cm/s) MV A Velocity 49.0 (40-130 cm/s) E/A Ratio 1.25 MV PHT 66.0 ms Left Ventricle The left ventricle is normal size. Left ventricular systolic function is normal. The left ventricular ejection fraction is within the normal range. Proximal septal thickening is present. There is normal LV segmental wall motion. The left ventricular diastolic function is normal. LVEF is 55%. Right Ventricle The right ventricle is normal size. The right ventricular systolic function is normal. Atria The left atrium size is normal. The right atrium size is normal. There is no color Doppler evidence of interatrial shunt. Aortic Valve The aortic valve is mildly thickened. There is no hemodynamically significant aortic valvular stenosis. No aortic regurgitation is present. Mitral Valve The mitral valve is normal in structure. No evidence of mitral valve stenosis. Trace mitral regurgitation is present. Tricuspid Valve The tricuspid valve leaflets are thin and pliable. Trace tricuspid regurgitation. There is insufficient TR jet to estimate RVSP. Pulmonic Valve The pulmonary valve is grossly normal in structure. Trace pulmonic valve regurgitation is present. Great Vessels The aortic root is normal in size. IVC is normal in size and collapses >50% with inspiration. Pericardium There is no pericardial effusion. Other Information Study Quality: Technically Difficult Conclusion Normal biventricular systolic function. No significant valvular stenosis or regurgitation. Electronically signed by : Esther Huang MD 03/30/2025 00:17:55
== END 2025-03-23 23:59 | disposition home or self-care (01) ==
LOC: RAD 07:54
PROVIDERS: PCP Family Medicine; Visit Provider Nurse Practitioner
DX: I11.9 Hypertensive heart disease without heart failure (principal); R94.39 Abnormal result of other cardiovascular function study; R55 Syncope and collapse; R94.31 Abnormal electrocardiogram [ECG] [EKG]
CPT/HCPCS: 78452; 93017; 93018; 93306; A9502

== ENCOUNTER 2025-04-03 13:51 | Outpatient (CLI) | payer BC, SELFPAY ==
--- OUTSIDE RECORDS SUMMARY | 2025-02-28 23:00 | XMS_ITS | Encounter Summary ---
Author Organization [facility] Address [address] [place], [place] [id number] Phone [email or web address] Care Team Providers Care Shop Lead Name Role Phone Jazmine Quintanilla Primary Care Provider [phone] Reason for Visit * Reason Comments Care Coordination Encounter Details Date Type Department Care Team (Latest Contact Info) Description 02/28/2025 11:00 PM EDT Clinical Support [facility] [place] [address] [facility] [address] [place] [address] Tete Mooney PA [address] [place] [address] Lightheaded (Primary Dx) Social History Tobacco Use Types Packs/Day Years Used Date Smoking Tobacco: Never Smokeless Tobacco: Never Tobacco Cessation:Counseling Given: Not Answered Depression Answer Date Recorded PHQ Total Score 0 01/16/2025 Stress Answer Date Recorded Stress in your Life Not on file 04/13/2024 Dealing with Stress 3 04/13/2024 Sex and Gender Information Value Date Recorded Sex Assigned at Not on file 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 Oral hydration at [facility]. EDWIGE declined ALS. Stable at discharge and transported to the ER by his . RTC with release to RTW note. documented in this encounter Progress Notes * VINITA Valera - 02/28/2025 11:00 PM EDT Subjective Ana Liu Jr. is a 59 y.o. male. WD ID: [id number] Employer: [employer] Date of Hire: 09/24/22 Cost Center: [id number] Description: Quality, Vehicle Performance Shift: 2nd Full-time GL and #: Jared Gilbert Responded to tones dropped for LH/D in 200. Onset: ~10 minutes prior to arrival Symptoms: lh/d, fuzzy headed , syncopal episode Transported TM back to [facility] 1999 via Med 1 without stretcher. Notes: Upon arrival to scene, EDWIGE is seated in break area chair, A&O x4, no acute distress noted. Reports he thinks his blood sugar is either too low or too high. Denies CP or SOB. POCT glucose 325, VS obtained. TM reports he just ate lunch and had his normal turkey wrap with water. TM is a diagnosed Type 2 diabetic who only takes daily 25 mg Jardiance, no insulin usage. TM reports that his blood sugar is usually 80-110. TM no longer wears CGM because he said it messes him up while doing hisprocesses. After talking more, TM admits that he passed out prior to them dropping tones. TM deniesany pain anywhere or hitting his head. He now just feels lh/d and fuzzy headed . TM declined ambulance at this time , but agreed to further eval at [facility]. GL gave TM water. TM feels able to walk to Med 1 and feels stable enough to sit up. Gait steady. Once arriver, Orthostatics, EKG obtained and TM given more water to drink. Report given to VINITA William. Triage nurse: Vita Lopez RN This was an emergency call with a disruption in patient care and scheduled clinic appointments. History Reviewed: Tobacco Allergies Meds Problems Med Hx Surg Hx See CC above TM is here for Emergency Evaluation after tones dropped for LH/Dizzy, Diabetic TM. TM states he waswalking to get some water and passed out. He states no prior history of syncope. No seizure activty, no history of seizures. TM denies Head injury. TM states PCP is Sophie Quintanilla and he has been taking Jardiance x 6 months now. TM states compliant with meds. FSBS 325. EKG with NSR, no specific inferior T wave changes. TM states no CP, no SOA, no palpitations. Review of Systems Respiratory: Negative for shortness of breath. Cardiovascular: Negative for chest pain and palpitations. Gastrointestinal: Negative for nausea and vomiting. Neurological: Positive for dizziness, syncope and light-headedness. Negative for seizures. PHQ-9 Total Score: 0 (02/27/2025 6:44 PM) Objective Vitals: 02/28/25225202/28/25231202/28/25231302/28/252314 BP: (!) 155/88 Pulse: 89 Resp: 16 SpO2: 98% 95% 95% 96% Orthostatic Vitals: 02/28/25231202/28/25231302/28/252314 Orthostatic BP: 144/95 140/98 144/94 Patient Position: Lying Sitting Standing Orthostatic Pulse: 86 89 90 Results for orders placed or performed in visit on 02/28/25 POCT glucose Collection Time: 02/28/25 11:22 PM Result Value Ref Range Glucose, POC 325 (A) 65 - 99 mg/dL Glucose (Glucometer), POC IQC Yes, verified internal control performed correctly. Lot Number ER bed 1 Expiration Date ER bed 1 Physical Exam Vitals and nursing note reviewed. Constitutional: General: He is not in acute distress. Appearance: Normal appearance. He is not ill-appearing. HENT: Head: Normocephalic. Mouth/Throat: Mouth: Mucous membranes are moist. Comments: Drinking water Eyes: Extraocular Movements: Extraocular movements intact. Pupils: Pupils are equal, round, and reactive to light. Cardiovascular: Rate and Rhythm: Normal rate and regular rhythm. Pulses: Normal pulses. Heart sounds: Normal heart sounds. Pulmonary: Effort: Pulmonary effort is normal. No respiratory distress. Breath sounds: Normal breath sounds. No wheezing or rhonchi. Abdominal: General: Bowel sounds are normal. Palpations: Abdomen is soft. Tenderness: There is no abdominal tenderness. Skin: General: Skin is warm. Neurological: General: No focal deficit present. Mental Status: He is alert and oriented to person, place, and time. Cranial Nerves: No cranial nerve deficit. Gait: Gait normal. Comments: Orientation And Mobility Specialist is good/= Psychiatric: Mood and Affect: Mood normal. Assessment: ICD-10-CM ICD-9-CM 1. Lightheaded R42 780.4 POCT glucose ECG 12 lead Orders Placed This Encounter Procedures POCT glucose ECG 12 lead Patient Instructions Home; unfit. Oral hydration at S. TM declined ALS. Stable at discharge and transported to the ER by his . RTC with release to RTW note. documented in this encounter Plan of Treatment Not on file documented as of this encounter Procedures Procedure Name Priority Date/Time Associated Diagnosis Comments ECG 12-LEAD Routine 03/10/2025 10:20 AM EDT Lightheaded POCT GLUCOSE Routine 02/28/2025 11:22 PM EDT Lightheaded documented in this encounter Results * ECG 12 lead (03/10/2025 10:20 AM EDT) us Tete TALAMANTES ECG ORDERABLES Final Result * (ABNORMAL) POCT glucose (02/28/2025 11:22 PM EDT) [facility] Signature Glucose, POC 325(A) 65 - 99 mg/dL Glucose (Glucometer), POC IQC Yes, verified internal control performed correctly. Lot Number ER bed 1 Expiration Date ER bed 1 Blood (Blood, Capillary) 02/28/2025 11:22 PM EDT us Tete TALAMANTES POINT OF CARE TEST ORDERABLE S Final Result documented in this encounter Visit Diagnoses Diagnosis Lightheaded- Primary Dizziness and giddiness documented in this encounter Care Teams Shop Lead Relationship Specialty Start Date End Date Jazmine Quintanilla [address] [place] [address] [phone] PCP - General 10/24/24 documented as of this encounter
[2025-04-03 14:25] LABS: Hematocrit 48.5 % (42.0-52.0); Hemoglobin 16.4 g/dL (14.1-18.0); Immature Granulocytes % 1.5 %; Mean Corpuscular HGB Conc 33.8 g/dL (31.8-35.4); Mean Corpuscular Hemoglobin 29.2 pg (27.0-31.2); Mean Corpuscular Volume 86.5 fl (80-94); Nucleated Red Blood Cells % 0 %; Platelet Count 216 K/mm3 (142-424); Red Blood Count 5.61 M/mm3 (4.60-6.20); Red Cell Distribution Width-SD 41.3 fL; White Blood Count 5.2 K/mm3 (4.8-10.8)
[2025-04-03 14:40] LABS: Alanine Aminotransferase 49 U/L (12-78); Albumin Level 3.8 g/dl (3.5-5.0); Alkaline Phosphatase 112 U/L (38-126); Anion Gap 11.6 mEq/L (5-15); Aspartate Amino Transferase 41 U/L (17-59); Bilirubin,Direct 0.2 mg/dl (0.0-0.4); Bilirubin,Indirect 0.5 mg/dL (0.0-0.9); Bilirubin,Total 0.7 mg/dl (0.2-1.3); Bilirubin,Unconjugated 0.5 mg/dL (0.0-1.1); Blood Urea Nitrogen 21 mg/dl (9-20); Calcium 9.6 mg/dl (8.4-10.2); Carbon Dioxide 26 mmol/L (22.0-30.0); Chloride 102 mmol/L (98-107); Cholesterol 297 mg/dl (140-200); Creatinine,Serum 1.00 mg/dl (0.66-1.25); Estimated Glomerular Filt Rate 76 ml/min (>60); GFR (African American) 93 ML/MIN (>60); Glucose 207 mg/dl (74-100); HDL Cholesterol 55 mg/dl (40-60); Magnesium 2.0 mg/dl (1.6-2.3); Potassium 4.6 mmoL/L (3.5-5.1); Sodium 135 mmol/L (136-145); Total Protein,Serum 7.2 g/dl (6.3-8.2); Triglycerides 274 mg/dl (30-150)
[2025-04-03 14:41] LABS: Hemoglobin A1C 9.6 % (4.0-6.0)
--- OUTSIDE RECORDS SUMMARY | 2025-04-03 14:47 | XMS_ITS | Encounter Summary ---
Author Organization [facility] Address [address] [place] [address] Phone [email or web address] Care Team Providers Care Copper Flotation Operator Name Role Phone Jazmine Quintanilla Primary Care Provider [phone] Encounter Details Date Type Department Care Team (Late st Contact Info) Description 03/02/[address] [place] [address] Tete Mooney PA [address] [place] [address] Social History Tobacco Use Types Packs/Day Years Used Date Smoking Tobacco: Never Smokeless Tobacco: Never Depression Answer Date Recorded PHQ Total Score 0 01/16/2025 Stress Answer Date Recorded Stress in your Life Not on file 04/13/2024 Dealing with Stress 3 04/13/2024 Sex and Gender Information Value Date Recorded Sex Assigned at Not on file 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 (Eval done at [facility]- Dx with Syncope). Wearing a heart monitor. Found something in his lung- pulmonary nodule. Not sure if a clot. Cardiology and maybe a [facility] appt tomorrow. TM states told his heart may have re-booted. Confirmed no injury with LOC. Discussed [employer] [place] [employer] and f/u HR and GL/AM. TM [...] on filedocumented in this encounter Care Teams Copper Flotation Operator Relationship Specialty Start Date End Date Jazmine Quintanilla [address] [place] [address] [phone] PCP - General 10/24/24 documented as of this encounter
--- OUTSIDE RECORDS SUMMARY | 2025-04-03 14:47 | XMS_ITS | Encounter Summary ---
Author Organization [facility] Address [address] [place] [address] Phone [email or web address] Care Team Providers Care Wig Comber Name Role Phone Jazmine Quintanilla Primary Care Provider [phone] Encounter Details Date Type Department Care Team (Late st Contact Info) Description 02/15/2025 Telephone [employer] [facility] Power [employer] [address] [place] [address] Mariana Hawthorne, RN [address] [place] [address] Social History Tobacco Use Types Packs/Day Years Used Date Smoking Tobacco: Never Smokeless Tobacco: Never Depression Answer Date Recorded PHQ Total Score 0 01/16/2025 Stress Answer Date Recorded Stress in your Life Not on file 04/13/2024 Dealing with Stress 3 04/13/2024 Sex and Gender Information Value Date Recorded Sex Assigned at Not on file 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 He is using ibuprofen but no antibiotics for a few weeks. He has been seen by S provider and on 1:1 restricted duty. He has a follow up with Specialist office at [facility] on 02/27/25. He has called the office [...] on filedocumented in this encounter Care Teams Wig Comber Relationship Specialty Start Date End Date Jazmine Quintanilla [address] [place] [address] [phone] PCP - General 10/24/24 documented as of this encounter
--- OUTSIDE RECORDS SUMMARY | 2025-04-03 14:47 | XMS_ITS | Clinical Summary ---
Author Organization [facility] Address [address] [place] [address] Phone [email or web address] Care Team Providers Care Pelletizer Operator Name Role Phone Jazmine Quintanilla Primary Care Provider [phone] Allergies No known active allergies Medications lisinopril [...] Type Department Care Team Description 03/02/2025 [facility] [place] [address] [place] [address] Tete Mooney PA 03/01/2025 Telephone [facility] [address] [facility] [address] [place] [address] Vita Lopez, RADHA 02/28/2025 11:00 PM EDT Clinical Support [facility] [address] [facility] [address] [place] [address] Tete Mooney PA Lightheaded (Primary Dx) 02/15/2025 Telephone [employer] [facility] [employer] [address] [place] [address] Mariana Hawthorne RN from Last [...] on file 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
--- OUTSIDE RECORDS SUMMARY | 2025-04-03 14:47 | XMS_ITS | Encounter Summary ---
Author Organization [facility] Address [address] [place], [place] [phone] Phone [email or web address] [email or web address] Care Team Providers Care Clinical Trial Assistant Name Role Phone Jazmine Quintanilla Primary Care Provider [phone] Encounter Details Date Type Department Care Team (Late st Contact Info) Description 03/01/[address] [place] [address] Vita Lopez RN [address] [place] [address] Social History Tobacco Use Types Packs/Day Years Used Date Smoking Tobacco: Never Smokeless Tobacco: Never Depression Answer Date Recorded PHQ Total Score 0 01/16/2025 Stress Answer Date Recorded Stress in your Life Not on file 04/13/2024 Dealing with Stress 3 04/13/2024 Sex and Gender Information Value Date Recorded Sex Assigned at Not on file 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
[2025-04-03 14:56] LABS: Free T4 (Free Thyroxine) 1.03 ng/dl (0.78-2.19)
[2025-04-03 15:09] LABS: Thyroid Stimulating Hormone 1.55 uIU/mL (0.465-4.68)
== END 2025-04-03 23:59 | disposition home or self-care (01) ==
LOC: LAB 13:54
PROVIDERS: PCP Family Medicine; Visit Provider Nurse Practitioner
DX: R94.39 Abnormal result of other cardiovascular function study (principal); R55 Syncope and collapse; I10 Essential (primary) hypertension; E11.9 Type 2 diabetes mellitus without complications; R94.31 Abnormal electrocardiogram [ECG] [EKG]
CPT/HCPCS: 36415; 80048; 80061; 80076; 83036; 83735; 84439; 84443; 85025

== ENCOUNTER 2025-04-11 08:46 | Day surgery (SDC) | payer BC, SELFPAY ==
[2025-04-11] VITALS (12 sets, daily range): BP systolic 95–157; BP diastolic 72–99; PULSE 72–92; RESP 14–21; TEMP 36.1–36.4; O2SAT 91–100; BMI 27.1
--- NOTE | 2025-04-11 07:10 | IR_ITS ---
APPROVED REPORT Patient Location: Outpatient PROCEDURES Left heart catheterization Left ventriculogram Selective coronary angiogram INDICATION Abnormal Myoview, Angina pectoris, Informed consent was obtained prior to the procedure. COMPLICATIONS NONE Estimated Blood Loss: LESS THAN 10 ML TECHNIQUE One percent lidocaine used to anesthetize the right anterior aspect of the wrist. The right radial artery was accessed via the Seldinger technique. A 6 Algerian sheath was placed in the right radial artery. 2.5 mg of Verapamil, 800 mcg of nitroglycerin, 1mg Lidocaine and 5000 U Heparin were given through the arterial sheath. The JL3 catheter was also used to perform left heart catheterization, left ventriculogram and selective coronary angiogram. At the end of the procedure the sheath was removed good hemostasis was achieved using Traclet band, patient was transferred to the postop holding area in stable condition. ANGIOGRAPHIC RESULTS The left anterior descending artery Originates in the left coronary cusp and has a long proximal 70% stenosis followed by mid vessel 70% stenosis with a distal 80% stenosis as the LAD wraps the apex. It gives rise to a large first diagonal artery which has a proximal 80% concentric stenosis The circumflex artery Is not visually appreciated The right coronary artery Is a massively large dominant vessel with a proximal 80% stenosis mid vessel 40% stenosis. A large posterior descending artery has a proximal eccentric 70% stenosis. The NOLEN ventriculogram reveals Preserved 60% The left ventricular end-diastolic pressure 20 mmHg IMPRESSION Coronary artery disease as described above Preserved ejection fraction Elevated LVEDP PLAN 1. Patient will be referred to [facility] for coronary bypass surgery 2. Tighter control of diabetes 3. LDL to be achieved at 55 with high intensity statin Electronically signed by : Delfino Feldman MD 04/11/2025 14:13:00
[2025-04-11] MEDS: HEPARIN 1,000 UNITS/500ML NS (CATH LAB) 3000 UNIT IV (10:38)
[2025-04-11] MEDS: NITROGLYCERIN 800MCG/8ML SYR (CATH LAB) 800 MCG IA (10:38)
[2025-04-11] MEDS: HEPARIN 1,000 UNITS/ML 10ML VIAL (CATH LAB) 5000 UNIT IV (10:39)
[2025-04-11] MEDS: 0.9 % SODIUM CHLORIDE 500 ML 25 ML IV (10:39)
[2025-04-11] MEDS: LIDOCAINE 1% 10ML MDV 10 ML IJ (10:40)
[2025-04-11] MEDS: VERAPAMIL 2.5MG/ML 2ML VIAL 2.5 MG IV (10:40)
[2025-04-11] MEDS: FENTANYL 100MCG/2ML VIAL 50 MCG IV (10:57)
[2025-04-11] MEDS: MIDAZOLAM HCL 1MG/ML 5ML VIAL 1 MG IV (10:57)
[2025-04-11] MEDS: IOPAMIDOL-370 (76%);100ML BOTTLE 50 ML IV (13:27)
== END 2025-04-11 14:20 | disposition home or self-care (01) ==
PROVIDERS: PCP Family Medicine; Visit Provider Internal Medicine
PROC: 4A023N7 Measurement of Cardiac Sampling and Pressure, Left Heart, Percutaneous Approach (ICD-10-PCS; CPT 93452; principal; 2025-04-11 09:45)
DX: R93.1 Abnormal findings on diagnostic imaging of heart and coronary circulation (principal); I25.119 Atherosclerotic heart disease of native coronary artery with unspecified angina pectoris; Z79.899 Other long term (current) drug therapy; Z79.84 Long term (current) use of oral hypoglycemic drugs; R55 Syncope and collapse; R91.1 Solitary pulmonary nodule; I10 Essential (primary) hypertension; E11.9 Type 2 diabetes mellitus without complications
CPT/HCPCS: 93452; 99152; C1725; C1769; J1200; J1644; J2003; J3010; J7040; Q9967